=== PATIENT | female | born 1990 | race Caucasian/White ===

== ENCOUNTER 2020-08-30 09:14 | Outpatient (REF) | payer OTHER, SELFPAY ==
--- NOTE | 2020-08-30 09:29 | MR_ITS ---
EXAMINATION: MR ABDOMEN WITHOUT AND WITH CONTRAST MR PELVIS WITHOUT AND WITH CONTRAST CLINICAL INFORMATION: Iron deficiency anemia. Prior cholecystectomy 2010. COMPARISON: CT abdomen and pelvis noncontrast 06/15/2020, CT abdomen and pelvis with contrast 03/07/2019, ultrasound pelvis 03/07/2019 TECHNIQUE: MR abdomen and MR pelvis are performed without and with use of 9 mL intravenous Gadavist gadolinium contrast. Imaging is performed in 3 planes. Patient had 1.5 L of oral Breeza prior to imaging. FINDINGS: LUNG BASES: The visualized lung bases are unremarkable. LIVER, GALLBLADDER, AND BILIARY TREE: The liver is normal in size, smooth in contour, and normal in signal. No focal hepatic lesion or biliary ductal dilatation is present. The gallbladder is surgically absent. The common duct is unremarkable. There is no biliary ductal dilatation. PANCREAS: Normal in size and contour and signal. No pancreatic ductal distention or peripancreatic inflammatory changes. SPLEEN: Normal. ADRENAL GLANDS: Normal. KIDNEYS AND URETERS: The kidneys are normal in size, shape, and enhance symmetrically. No hydronephrosis. No perinephric stranding. GASTROINTESTINAL TRACT: There is no bowel obstruction or inflammatory changes seen in the bowel or mesentery. No bowel wall thickening or visible mass or abnormal enhancement. The appendix is unremarkable. There is no ascites or fluid collection. ABDOMINAL WALL: No significant hernia is appreciated. LYMPH NODES: No lymphadenopathy. VASCULAR: Unremarkable. PELVIS: The uterus is normal in size. There are some small nabothian cysts in the cervix. There is no adnexal mass or pelvic ascites. OSSEOUS STRUCTURES: Marrow signal normal. IMPRESSION: 1. No bowel obstruction or focal inflammatory changes in bowel or mesentery. 2. Prior cholecystectomy. No ductal dilatation.
== END 2020-08-30 09:15 | disposition home or self-care (01) ==
LOC: HO.MRI 09:14
PROVIDERS: Visit Provider Internal Medicine Gastroenterology
DX: D50.9 Iron deficiency anemia, unspecified (principal)
CPT/HCPCS: 72197; 74183

== ENCOUNTER → 2020-09-17 11:28 | Outpatient (BNVA) | payer OTHER, SELFPAY | PROVIDERS: PCP Internal Medicine; Visit Provider Internal Medicine Gastroenterology | DX: D50.0 Iron deficiency anemia secondary to blood loss (chronic) (principal) | CPT/HCPCS: 99212 ==

== ENCOUNTER 2020-09-18 09:37 | Outpatient (REF) | payer OTHER, SELFPAY ==
[2020-09-18 11:15] LABS: MANUAL DIFF FLAG NO
[2020-09-18 11:28] LABS: Basophils Absolute Auto 0.1 X10*3/uL (0.0-0.2); Basophils Percent Auto 0.4 % (0-2); Eosinophils Absolute Auto 0.3 X10*3/uL (0.0-0.4); Hematocrit 38.4 % (37-47); Hemoglobin 12.3 g/dl (12.0-16.0); Imm Gran Abs Auto 0.11 X10*3/uL (0.00-0.03); Imm Gran Pct Auto 0.8 % (0.0-0.4); Lymphocytes Absolute Auto 3.2 X10*3/uL (1.2-4.9); Lymphocytes Percent Auto 22.5 % (20-40); Mean Corpuscular Volume 84.2 fL (80-98); Mean Platelet Volume 9.4 fL (9.4-12.3); Monocytes Absolute Auto 1.1 X10*3/uL (0.1-1.2); Monocytes Percent Auto 8.1 % (2-11); Neutrophils Absolute Auto 9.3 X10*3/uL (2.0-8.3); Neutrophils Percent Auto 66.2 % (45-73); Platelet Count 256 X10*3/uL (160-400); Red Blood Count 4.56 X10*6/uL (4.20-5.50); Red Cell Distribution Width 13.5 % (11.0-16.0)
[2020-09-18 11:48] LABS: Unsaturated Iron Binding 206 ug/dL
[2020-09-18 11:51] LABS: Glucose Urine UA NEG (NEG); Leukocyte Esterase Urine NEG (NEG); Nitrite Urine NEG (NEG); Specific Gravity - Urine >= 1.030 (1.005-1.025); Urine Blood TRACE (NEG); Urine Ketones 5 MG/DL (NEG); Urine Protein NEG (NEG-TRACE)
[2020-09-18 11:57] LABS: Appearance Urine HAZY; Color Urine YELLOW
[2020-09-18 11:59] LABS: Iron 49 mcg/dL (30-160); Percent Iron Saturation 19 % (15-50); Total Iron Binding Capacity 255 mcg/dL (228-428)
[2020-09-18 12:08] LABS: Ferritin 36 ng/mL (10-122)
[2020-09-18 12:18] LABS: Bacteria Urine TRACE /LPF; Mucus Urine 1+ /LPF; RBC Urine 0-2 /HPF (0); Squamous Epithelial Cell Urine 1+ /LPF; WBC Urine 0-2 /HPF (0-4)
== END 2020-09-18 09:38 | disposition home or self-care (01) ==
LOC: HO.LAB 09:37
PROVIDERS: PCP Internal Medicine; Visit Provider Internal Medicine Gastroenterology
DX: D50.0 Iron deficiency anemia secondary to blood loss (chronic) (principal)
CPT/HCPCS: 36415; 81001; 82728; 83540; 85025

== ENCOUNTER → 2020-10-17 08:21 | Outpatient (BNVA) | payer OTHER, SELFPAY | PROVIDERS: Visit Provider Internal Medicine Gastroenterology | DX: K63.3 Ulcer of intestine (principal) | CPT/HCPCS: 91110 ==

== ENCOUNTER → 2020-11-05 15:08 | Outpatient (BNVA) | payer OTHER, SELFPAY | PROVIDERS: Visit Provider Internal Medicine Gastroenterology | DX: Z76.89 Persons encountering health services in other specified circumstances (principal) ==

== ENCOUNTER → 2020-12-02 08:00 | Outpatient (REF) | payer OTHER, SELFPAY ==
--- NOTE | 2020-12-02 08:05 | NM_ITS ---
EXAMINATION: RADIONUCLIDE SOLID FOOD GASTRIC EMPTYING 4-HOUR STUDY CLINICAL INFORMATION: Early satiety, burning, abdominal pain. COMPARISON: No previous gastric emptying study is available for comparison. TECHNIQUE: A standard meal consisting of 4 oz of Egg Beaters brand equivalent tagged with 900 microcuries Tc-99m Sulfur Colloid, 8 oz water and 2 slices of toast with jelly was administered orally to the patient. Images were obtained using a dual head gamma camera in the anterior and posterior projections over of the stomach immediately post ingestion and at hourly intervals up to 4 hours post ingestion. The anterior and posterior counts at each time interval were averaged using the geometric mean and expressed as percentage of the immediate post ingestion counts. FINDINGS: There is good visualization of activity in the stomach immediately post ingestion. As the study progresses, there is good clearance of activity from the stomach and visualization of progressively increasing small bowel activity. By the end of the study, there is almost no retention noted in the stomach. Retention in the stomach at each time interval was: 1 hour 53% (normal 37%-90%) 2 hours 21% (normal 30%-60%) 3 hours 21% 4 hours 8% (normal 0%-10%) NM/NM gastric emptying study IMPRESSION: Normal 4-hour solid food gastric emptying study.
== END ==
LOC: HO.NUCMED 08:00
PROVIDERS: Visit Provider Internal Medicine Gastroenterology
DX: R68.81 Early satiety (principal); R10.9 Unspecified abdominal pain
CPT/HCPCS: 78264; A9541

== ENCOUNTER 2021-01-17 16:17 | Outpatient (REF) | payer OTHER, SELFPAY ==
[2021-01-17 17:41] LABS: MANUAL DIFF FLAG NO
[2021-01-17 17:57] LABS: Glucose Urine UA NEG (NEG); Leukocyte Esterase Urine NEG (NEG); Nitrite Urine POS (NEG); PH 5.5 (5.0-8.0); Specific Gravity - Urine >= 1.030 (1.005-1.025); UACC Culture Trigger YES; Urine Blood NEG (NEG); Urine Ketones 5 MG/DL (NEG); Urine Protein 1+ MG/DL (NEG-TRACE)
[2021-01-17 17:58] LABS: Appearance Urine CLOUDY; Color Urine YELLOW
[2021-01-17 18:06] LABS: Bacteria Urine 1+ /LPF; RBC Urine 0 /HPF (0); Squamous Epithelial Cell Urine TRACE /LPF; WBC Urine 0 /HPF (0-4)
[2021-01-17 18:12] LABS: Basophils Absolute Auto 0.1 X10*3/uL (0.0-0.2); Basophils Percent Auto 0.4 % (0-2); Eosinophils Absolute Auto 0.1 X10*3/uL (0.0-0.4); Eosinophils Percent Auto 0.9 % (0-4); Hematocrit 40.8 % (37-47); Hemoglobin 13.3 g/dl (12.0-16.0); Imm Gran Abs Auto 0.12 X10*3/uL (0.00-0.03); Imm Gran Pct Auto 0.8 % (0.0-0.4); Lymphocytes Absolute Auto 3.7 X10*3/uL (1.2-4.9); Lymphocytes Percent Auto 25.1 % (20-40); Mean Corpuscular HGB Conc 32.6 g/dl (31.0-35.0); Mean Corpuscular Hemoglobin 26.8 pg (27.0-33.0); Mean Corpuscular Volume 82.1 fL (80-98); Mean Platelet Volume 9.6 fL (9.4-12.3); Monocytes Absolute Auto 1.1 X10*3/uL (0.1-1.2); Monocytes Percent Auto 7.3 % (2-11); Neutrophils Absolute Auto 9.6 X10*3/uL (2.0-8.3); Neutrophils Percent Auto 65.5 % (45-73); Platelet Count 259 X10*3/uL (160-400); Red Blood Count 4.97 X10*6/uL (4.20-5.50); Red Cell Distribution Width 13.9 % (11.0-16.0); White Blood Count 14.6 X10*3/uL (4.8-10.8)
[2021-01-17 18:24] LABS: Alanine Aminotransferase 12 U/L (0-31); Albumin Level 4.1 g/dL (3.5-5.0); Alkaline Phosphatase 98 U/L (39-117); Anion Gap 13 (12-20); Aspartate Amino Transferase 13 U/L (5-31); Bilirubin Total 0.2 mg/dL (0.0-1.0); Blood Urea Nitrogen 10 mg/dL (9-16); C Reactive Protein 0.31 mg/dL (< or = 0.50); Calcium 8.9 mg/dL (8.4-10.2); Carbon Dioxide 23 mmol/L (22-29); Chloride 106 mmol/L (96-108); Estimated Glomerular Filt Rate > 60; Glucose Random 79 mg/dL (60-115); Sodium 138 mmol/L (135-145); Total Protein 6.7 g/dL (6.5-8.0)
[2021-01-17 18:43] LABS: Potassium 3.8 mmol/L (3.3-5.1)
[2021-01-17 19:10] LABS: Erythrocyte Sedimentation Rate 6 MM/HR (0-20)
[2021-01-17 19:17] LABS: Ferritin 42 ng/mL (10-122)
== END 2021-01-17 16:18 | disposition home or self-care (01) ==
LOC: HO.LAB 16:17
PROVIDERS: PCP Internal Medicine; Visit Provider Internal Medicine Gastroenterology
DX: D50.0 Iron deficiency anemia secondary to blood loss (chronic) (principal); R30.0 Dysuria
CPT/HCPCS: 36415; 80053; 81001; 81003; 82728; 85025; 85652; 86140; 87086

== ENCOUNTER 2021-01-20 08:36 | Outpatient (REF) | payer OTHER, SELFPAY ==
[2021-01-27 20:52] LABS: Calprotectin, Fecal 8 mcg/g
== END 2021-01-20 08:37 | disposition home or self-care (01) ==
LOC: HO.LNP 08:36
PROVIDERS: Visit Provider Internal Medicine Gastroenterology
DX: D50.0 Iron deficiency anemia secondary to blood loss (chronic) (principal); K25.9 Gastric ulcer, unspecified as acute or chronic, without hemorrhage or perforation; F17.290 Nicotine dependence, other tobacco product, uncomplicated
CPT/HCPCS: 83993

== ENCOUNTER 2021-03-05 08:25 | Day surgery (SDC) | payer OTHER, SELFPAY ==
[2021-03-05 09:26] VITALS: BP 107/70; PULSE 81; RESP 18; TEMP 36.6; O2SAT 97; BMI 38.6
[2021-03-05 09:37] LABS: UPreg QC Valid YES; Urine Pregnancy NEGATIVE (NEGATIVE)
[2021-03-05] MEDS: Lactated Ringers 1,000 ML 50 ML IV (09:46)
--- NOTE | 2021-03-05 10:05 | MHC.SHP ---
Pre-Procedural Eval Section B Chief Complaint: Rectal Bleeding Relevant Family History (Specify if Yes): No Relevant Social History: Other (specify) (THC) Present Medications: see Short Stay Collaborative assessment Medical History: Significant History (anemia, PTSD,depression) History of Previous Operations: Relevant previous surgery/procedure and date(s) (History of colonoscopy Hx of cholecystectomy Hx of endoscopy) Allergies: Allergies Allergy/AdvReac Type Severity Reaction Status Date / Time latex [LATEX] Allergy Intermediate hives Verified 02/26/21 16:21 haloperidol [From HALDOL] Allergy Unknown ANXIETY Verified 02/26/21 16:21 quetiapine [From SEROQUEL] Allergy Unknown HIVES Verified 02/26/21 16:21 Review of Systems Sugical H&P ROS: Negative: Constitution, Cardiovascular, Respiratory, Neurological, Psychiatric, Hem-Onc, Allergic/Immunologic, Gastrointestinal, Genitourinary, Musculoskeletal, Integumentary, Endocrine and Eyes/Ears/Nose/Throat Exam Surgical H&P Exam: Normal: HEENT, Normal: Heart, Normal: Lungs, Normal: Extremities, Normal: Abdomen, Normal: Skin and Normal: Neurological Plan Diagnosis/Plan: Unchanged I have reviewed the history and physical and performed a pertinent physical examination on my patient. No changes have occurred unless specified.
--- NOTE | 2021-03-05 10:21 | PM.OP ---
Brief Operative Note Date of Service: 03/05/21 Pre-op diagnosis: rectal bleeding, anemia Post-op diagnosis: same Procedure: see op note Surgeon: Mata De La O MD Anesthesia: MAC Estimated blood loss (mL): 0 Condition: stable Disposition: PACU
--- NOTE | 2021-03-05 10:22 | P.OP_ITS ---
Operative Note Operative Note Date of Service: 03/05/21 Narrative: Operative Information Procedure Description: Colonoscopy COLONOSCOPY Instrument: Olympus variable stiffness pediatric scope 190L Colonoscopy Monitoring: Vital signs and clinical assessment, continuous EKG monitoring, Pulse oximetry, Carbon Dioxide monitoring and blood pressure monitoring were done throughout the procedure. Colon withdrawal time was 11 minutes. Procedure: The patient was placed in the left lateral decubitis position and pre-procedure medications were administered. After a digital rectal examination of the ano-rectum, the video colonoscope was inserted into the rectum and advanced through the colon to the cecum/TI. The colonoscope was slowly withdrawn in a retrograde panoramic fashion and the colon mucosa was carefully examined including a retroflexed view of the rectum. Findings and interventions are described below. Procedure Difficulty:easy Findings: Terminal Ileum- single small erosion seen with some erythema, biopsies taken biopsies taken from right colon and transverse/left and rectum in different jars Cecum:normal Ascending Colon: normal Transverse Colon -normal Descending Colon:normal Sigmoid Colon: normal Rectum: Retroflexion with small inflammed internal hemorrhoids, grade I Anorectum - normal Colon preparation: Brielle Bowel Preparation Scale Right colon; 2 Transverse colon: 3 Left colon; 2 (0 = Unprepared colon segment with mucosa not seen due to solid stool that cannot be cleared. 1 = Portion of mucosa of the colon segment seen, but other areas of the colon segment not well seen due to staining, residual stool and/or opaque liquid. 2 = Minor amount of residual staining, small fragments of stool and/or opaque liquid, but mucosa of colon segment seen well. 3 = Entire mucosa of colon segment seen well with no residual staining, small fragments of stool or opaque liquid) Impression and Post Procedure Diagnosis: mild ileitis internal hemorrhoids Plan: High fiber diet leaflet Avoid straining at stool, epsom salts and sitz bath, anusol supps or cream Repeat Colonoscopy aged 45 for regular screening or earlier if clinically indicated Above findings were reviewed with the patient and relevant handouts were provided if indicated.
--- NOTE | 2021-03-05 10:40 | P.CONAN_ITS ---
[facility] Active Problems Active Problems: All Active Problems (Updated 02/26/21 @ 16:19 by Dianne valencia) Anemia (Acute) Ileitis (Acute) Early satiety (Acute) Past Medical History Medical History Anxiety and depression Asthma History of kidney stones History of pneumonia Iron deficiency anemia PTSD (post-traumatic stress disorder) Family History Family History Father Hx of heat stroke Mother No problems noted. Maternal Grandfather Cancer Paternal Grandfather Cancer Paternal Uncle Cancer Maternal Uncle Cancer Surgical History Surgical History History of colonoscopy History of cystoscopy History of tonsillectomy Hx of cholecystectomy Hx of endoscopy Social History Social History Household Members: Children Alcohol intake: current Alcohol intake frequency: does not drink Smoking Status: Current every day smoker Tobacco Type: Cigar Cigarettes Per Day: 2 Substance Use Type: Marijuana Have you been hit, kicked, punched, or otherwise hurt by someone within the past year? If so, by whom?: No Advance Directives: No Advance Directives Information Provided: Yes Recently lost weight without trying: No Meds Allergies Allergy/AdvReac Type Severity Reaction Status Date / Time latex [LATEX] Allergy Intermediate hives Verified 02/26/21 16:21 haloperidol [From HALDOL] Allergy Unknown ANXIETY Verified 02/26/21 16:21 quetiapine [From SEROQUEL] Allergy Unknown HIVES Verified 02/26/21 16:21 Active Medications: Current Medications Generic Name Dose Route Start Last Admin Trade Name Freq PRN Reason Stop Dose Admin Lactated Ringer's 1,000 mls @ 50 mls/hr 03/05/21 07:15 03/05/21 09:46 Lr IV 50 mls/hr .Q20H ROSELINE Administration Home Medications Medication Instructions Recorded Confirmed Last Taken Type clonazepam 1 mg tablet 1 mg PO BID PRN 11/05/20 02/26/21 03/05/21 History clonidine HCl 0.1 mg tablet 0.1 mg PO BID 11/05/20 02/26/21 03/05/21 History divalproex 500 mg tablet,delayed 500 mg PO BID 11/05/20 02/26/21 Unknown History release olanzapine 5 mg tablet 5 mg PO BID 11/05/20 02/26/21 Unknown History Exam Exam Date and Time: March 05, 2021 1040 Height,Weight and Vital Signs: Height 5 ft 4 in Weight 102.058 kg Last Vital Signs Temp 98 F 03/05/21 09:26 Pulse 81 03/05/21 09:26 Resp 18 03/05/21 09:26 BP 107/70 03/05/21 09:26 Pulse Ox 97 03/05/21 09:26 Pertinent Lab Results Pertinent Lab Results: Laboratory Tests 03/05/21 09:20 Urine Test NEGATIVE Airway Mallampati Class: I TM Dist: >3cm Neck ROM: Full Loose/Missing/Broken Teeth: No Assessment and Plan Assessment Anesthesia Assessment: Anesthesia Plan Discussed and Chart Reviewed Final Anesthetic Review ASA Class: II Final Preanesthetic Review: No Changes in Pt Med Stat, Meds/Allgs Chart Reviewed, Consent Obtained/Reviewed and Anes Risks/Benef Reviewed Patient Risk: Low Procedure Risk: Low Anesthetic Plan Anesthetic Plan: MAC: Disposition: Standard PACU
[2021-03-05 10:47] VITALS: BP 108/78; PULSE 83; RESP 14; TEMP 36.3; O2SAT 99
[2021-03-05 11:02] VITALS: BP 110/70; PULSE 74; RESP 18; TEMP 36.4; O2SAT 99
== END 2021-03-05 11:27 | disposition home or self-care (01) ==
PROVIDERS: Anesthesiology; PCP Internal Medicine; Visit Provider Internal Medicine Gastroenterology
PROC: 0DJD8ZZ Inspection of Lower Intestinal Tract, Via Natural or Artificial Opening Endoscopic (ICD-10-PCS; CPT 45378; principal; 2021-03-05 10:10)
DX: K62.5 Hemorrhage of anus and rectum (principal); K52.9 Noninfective gastroenteritis and colitis, unspecified; K64.0 First degree hemorrhoids; D50.0 Iron deficiency anemia secondary to blood loss (chronic); Z90.49 Acquired absence of other specified parts of digestive tract; F32.9 Major depressive disorder, single episode, unspecified; F17.290 Nicotine dependence, other tobacco product, uncomplicated; F43.10 Post-traumatic stress disorder, unspecified; Z79.899 Other long term (current) drug therapy; Z91.040 Latex allergy status; Z88.8 Allergy status to other drugs, medicaments and biological substances; F12.90 Cannabis use, unspecified, uncomplicated
CPT/HCPCS: 45380; 81025; 88305

== ENCOUNTER → 2021-03-28 09:29 | Outpatient (BNVA) | payer OTHER, SELFPAY | PROVIDERS: PCP Internal Medicine; Visit Provider Internal Medicine Gastroenterology ==

== ENCOUNTER → 2021-07-29 10:38 | Outpatient (BNVA) | payer OTHER, SELFPAY | PROVIDERS: PCP Internal Medicine; Visit Provider Internal Medicine Gastroenterology ==

== ENCOUNTER 2022-09-22 10:00 | Emergency (ER) | payer OTHER, SELFPAY ==
--- NOTE | ~2022-09-22 | CT_ITS ---
EXAMINATION: CT HEAD WITHOUT CONTRAST CLINICAL INFORMATION: Headache x1 week COMPARISON: None TECHNIQUE: Contiguous axial imaging was performed of the head without the administration of IV contrast. This CT examination was performed using dose optimization techniques as appropriate, variously including the following: *Automated exposure control *Adjustment of mA and/or kV according to patient size (this includes techniques or standardized protocols for targeted exams where dose is matched to indication/reason for exam; i.e. extremities or head) *Use of iterative reconstruction technique Dose: 616 mGy-cm FINDINGS: There is no evidence of acute intracranial hemorrhage or territorial infarction. No abnormal mass-effect or midline shift is seen. Brar to white matter differentiation is well preserved. No extra axial fluid collections. The ventricles are normal in size and configuration. There is no abnormal attenuation within the brain parenchyma. No acute osseous findings. Mild hyperostosis frontalis interna. At the squamosal portion of the left temporal bone, there is a small 5 mm rounded calcis excrescence off the inner table of the calvarium which likely corresponds to a small meningioma. This produces minimal underlying mass effect at the adjacent temporal lobe. The sinuses and mastoid air cells are clear. CT/CT head/brain wo IV con IMPRESSION: No acute intracranial pathology.
[2022-09-22 10:08] VITALS: BP 120/80; PULSE 86; RESP 20; TEMP 36; O2SAT 100; BMI 33.1
[2022-09-22 10:23] LABS: MANUAL DIFF FLAG NO
[2022-09-22 10:25] LABS: Basophils Percent Auto 0.4 % (0-2); Eosinophils Absolute Auto 0.1 X10*3/uL (0.0-0.4); Eosinophils Percent Auto 0.9 % (0-4); Hematocrit 36.4 % (37.0-47.0); Hemoglobin 11.8 g/dl (12.0-16.0); Imm Gran Abs Auto 0.06 X10*3/uL (0.00-0.03); Imm Gran Pct Auto 0.5 % (0.0-0.4); Lymphocytes Absolute Auto 3.1 X10*3/uL (1.2-4.9); Lymphocytes Percent Auto 28.5 % (20-40); Mean Corpuscular HGB Conc 32.4 g/dl (31.0-35.0); Mean Corpuscular Volume 83.3 fL (80.0-98.0); Mean Platelet Volume 9.1 fL (9.4-12.3); Monocytes Absolute Auto 0.8 X10*3/uL (0.1-1.2); Monocytes Percent Auto 6.9 % (2-11); Neutrophils Absolute Auto 6.9 x10*3/uL (2.0-8.3); Neutrophils Percent Auto 62.8 % (45-73); Platelet Count 231 X10*3/uL (160-400); Red Blood Count 4.37 X10*6/uL (4.20-5.50); Red Cell Distribution Width 12.9 % (11.0-16.0)
[2022-09-22 10:46] LABS: Anion Gap 11 (12-20); Blood Urea Nitrogen 18 mg/dL (9-16); Calcium 9.2 mg/dL (8.4-10.2); Carbon Dioxide 21 mmol/L (22-29); Chloride 109 mmol/L (96-108); Creatinine Clr Calc Pharmacy 124.4; Estimated Glomerular Filt Rate > 60; Glucose Random 113 mg/dL (60-115); Potassium 3.7 mmol/L (3.3-5.1); Sodium 137 mmol/L (135-145)
--- NOTE | 2022-09-22 18:00 | ED.GENADULT ---
HPI - General Adult General Chief complaint: Eye Problems <HUY Osullivan - Last Filed: 09/22/22 19:27> Stated complaint: Headache <HUY Osullivan - Last Filed: 09/22/22 19:27> Time Seen by Provider: 09/22/22 17:32 <HUY Osullivan - Last Filed: 09/22/22 19:27> Source: patient <HUY Osullivan - Last Filed: 09/22/22 19:27> Mode of arrival: ambulatory <HUY Osullivan - Last Filed: 09/22/22 19:27> Limitations: no limitations <HUY Osullivan Last Filed: 09/22/22 19:27> History of Present Illness HPI narrative: 31-year-old female referred to the ED by nib assembler for headache for 1 week and as per her letter she states patient has papilledema in both eyes. Patient denies any slurred speech, facial droop, paralysis lower extremities, or loss of vision. She denies any family history of his tinea gravis on multiple sclerosis. Patient denies being any blood denies any recent head trauma <HUY Osullivan Last Filed: 09/22/22 19:27> Related Data Home medications: Home Medications Medication Instructions Recorded Confirmed clonazepam 1 mg tablet 1 mg PO BID PRN anxiety 11/05/20 02/26/21 clonidine HCl 0.1 mg tablet 0.1 mg PO BID anxiety 11/05/20 02/26/21 divalproex 500 mg tablet,delayed 500 mg PO BID 11/05/20 02/26/21 release Previous Rx's Medication Instructions Recorded bisacodyl 5 mg tablet,delayed 10 mg PO ONCE Bowel Preparation 1 10/08/20 release (Dulcolax (bisacodyl)) day #2 tabs ciprofloxacin HCl 500 mg tablet 500 mg PO BID #14 tabs 01/20/21 mesalamine 0.375 gram 1.5 g PO DAILY #120 caps 07/16/22 capsule,extended release 24 hr linaclotide 145 mcg capsule 145 mcg PO DAILY #30 caps 09/17/22 (Linzess) ghykmxvjwu-dkddnwvqvooyo-ajsqupkc 1 cap PO Q8H PRN pain #10 caps 09/22/22 50 mg-300 mg-40 mg capsule (Fioricet) <HUY Osullivan - Last Filed: 09/22/22 19:27> Allergies/adverse reactions: Allergies Allergy/AdvReac Type Severity Reaction Status Date / Time latex [LATEX] Allergy Intermediate hives Verified 07/29/21 10:39 haloperidol [From HALDOL] Allergy Unknown ANXIETY Verified 07/29/21 10:39 quetiapine [From SEROQUEL] Allergy Unknown HIVES Verified 07/29/21 10:39 <HUY Osullivan - Last Filed: 09/22/22 19:27> Review of Systems Review of Systems: Headache and blurry vision <HUY Osullivan - Last Filed: 09/22/22 19:27> Yes all other systems are reviewed and are negative <HUY Osullivan - Last Filed: 09/22/22 19:27> [facility] Past Medical History Medical History: Medical History Anxiety and depression Asthma History of kidney stones History of pneumonia Iron deficiency anemia PTSD (post-traumatic stress disorder) <HUY Osullivan - Last Filed: 09/22/22 19:27> Surgical History: Surgical History History of colonoscopy History of cystoscopy History of tonsillectomy Hx of cholecystectomy Hx of endoscopy <HUY Osullivan - Last Filed: 09/22/22 19:27> Family History Family History: Family History Father Hx of heat stroke Mother No problems noted. Maternal Grandfather Cancer Paternal Grandfather Cancer Paternal Uncle Cancer Maternal Uncle Cancer <HUY Osullivan - Last Filed: 09/22/22 19:27> Social History Social History: Social History Household Members: Children Alcohol intake: current Alcohol intake frequency: does not drink Cigarettes Per Day: 2 Substance Use Type: Marijuana Advance Directives: No Advance Directives Information Provided: Yes <HUY Osullivan Last Filed: 09/22/22 19:27> Physical Exam ED Vital Signs: Vital Signs - 24 hr 09/22/22 10:08 Temperature 96.8 F Pulse Rate 86 Respiratory Rate 20 Blood Pressure 120/80 Pulse Oximetry 100 Oxygen Delivery Method Room Air BMI result Body Mass Index 33.1 <HUY Osullivan Last Filed: 09/22/22 19:27> Vital Signs - 24 hr 09/22/22 10:08 Temperature 96.8 F Pulse Rate 86 Respiratory Rate 20 Blood Pressure 120/80 Pulse Oximetry 100 Oxygen Delivery Method Room Air BMI result Body Mass Index 33.1 <HUY Rodarte Last Filed: 09/22/22 23:01> Const General: cooperative, healthy appearing, comfortable, no acute distress, well developed and alert <HUY Osullivan Last Filed: 09/22/22 19:27> Orientation/consciousness: oriented to person, oriented to place, oriented to time and patient oriented x3 <HUY Osullivan Last Filed: 09/22/22 19:27> HENMT Head: Yes normal to inspection, Yes No palpable skull fracture present, Yes normocephalic, Yes atraumatic and No abrasion <HUY Osullivan Last Filed: 09/22/22 19:27> Ears: hearing grossly normal bilaterally and external ears normal <HUY Osullivan Last Filed: 09/22/22 19:27> Eyes Other: All visual feilds are intact. No erythema of conjuctiva. VIsual acuity <HUY Osullivan Last Filed: 09/22/22 19:27> General: appearance normal, both eyes and all related structures <HUY Osullivan Last Filed: 09/22/22 19:27> Neck Neck: Yes normal visual inspection, Yes full ROM, Yes no lymphadenopathy, Yes no meningeal signs, Yes trachea midline, Yes supple, No anterior neck swelling and No tender <HUY Osullivan Last Filed: 09/22/22 19:27> Chest Chest palpation & inspection: normal inspection of the chest and normal palpation of entire chest wall <HUY Osullivan Last Filed: 09/22/22 19:27> Resp Effort & Inspection: normal respiratory effort and able to speak in complete sentences <HUY Osullivan Last Filed: 09/22/22 19:27> Cardio Jugular venous distension: no JVD <HUY Osullivan Last Filed: 09/22/22 19:27> Heart sounds: S1 normal heart sound present and S2 normal heart sound present <HUY Osullivan Last Filed: 09/22/22 19:27> GI Inspection: Yes normal to inspection and No abdominal wall ecchymosis <HUY Osullivan Last Filed: 09/22/22 19:27> Palpation (GI): Soft to palpation, not firm, nontender, no guarding and not rigid <HUY Osullivan Last Filed: 09/22/22:27> General: No CVA tenderness and Yes no CVA tenderness <HUY Osullivan Last Filed: 09/22/22 19:27> Back/Spine/Pelvis Back: no CVA tenderness, No CVA tenderness and No back tenderness <HUY Osullivan Last Filed: 09/22/22 19:27> Skin General skin exam: no rashes or lesions noted and elasticity normal <HUY Osullivan Last Filed: 09/22/22 19:27> Neuro General: oriented to person, oriented to place, oriented to time, patient oriented x3, gait normal, moves all extremities, Normal light touch and pain sensation and no meningeal signs <HUY Osullivan Last Filed: 09/22/22 19:27> Extrem General: Yes normal to inspection and Yes full ROM <HUY Osullivan Last Filed: 09/22/22 19:27> Psych Appearance: grossly normal, well kempt and not disheveled <HUY Osullivan Last Filed: 09/22/22 19:27> Course Course Course Narrative: Dr. Valverde Recommends labs and HEad CT scan. IF head CT scan is normal than LP will be done. <HUY Osullivan Last Filed: 09/22/22 19:27> Reevaluation(s) Reevaluation #1: ESR CRP negative. REst of labs normal. HEad CT scan is normal. Case signed out HUY Mcgrath. patiient agreealbe to Lumbar puncture and explained the necessity for procedure and risks. patient gave verbal consent will sign paper consent. <HUY Osullivan - Last Filed: 09/22/22 19:27> Time: 19:23 <HUY Osullivan - Last Filed: 09/22/22 19:27> Reevaluation #2: I took over care of this patient, I did a lumbar puncture, obtain cerebral spinal fluid and sent it down to the lab for analysis. Prior to the procedure I obtained verbal and written consent which is in the chart. Patient tolerated procedure well, no complications. Opening pressure noted to be around 10. Patient denied any complaints during the procedure. Patient laying in a supine position, not complaining of postprocedural headache, numbness or tingling tells me she is feeling slightly better thus raising some suspicion for possible pseudotumor cerebri. Patient tells me that her headache is much improved benjamin when she came in. I ordered Fioricet for headache. My attending is following this case with me and agrees with treatment plan at this time. <HUY Rodarte - Last Filed: 09/22/22 23:01> Time: 20:42 <HUY Rodarte - Last Filed: 09/22/22 23:01> Reevaluation #3: Patient reports improvement in headache. Able to ambulate with steady gait without difficulties. Patient with normal cerebellar function and normal neurological exam. Patient tells me that the only symptom she is still having a slight pressure behind bilateral eyes and she is having a slight headache however much improved from initially. Patient tells me at no time was her vision painful or was she having painful extraocular movements therefore low suspicion for acute angle closure glaucoma and or wet macular degeneration. I discussed this case with my attending who recommends discharging patient home with Neurology follow-up, ophthalmology follow-up as well as Fioricet. I educated patient on worrisome signs and symptoms and when to return. At this time I feel comfortable discharge home with prompt PCP, neurology and ophthalmology follow-up. <HUY Rodarte - Last Filed: 09/22/22 23:01> Time: 22:51 <HUY Rodarte - Last Filed: 09/22/22 23:01> Medications Administered Discontinued Medications Generic Name Dose Route Start Last Admin Trade Name Freq PRN Reason Stop Dose Admin Acetaminophen/Butalbital/Caffeine 1 tab 09/22/22 20:03 09/22/22 21:56 Butalb/Acetamin/Caff 50/325/40 Tablet PO 09/22/22 20:04 1 tab ONCE ONE Administration Hydromorphone HCl 1 mg 09/22/22 21:27 09/22/22 21:55 Hydromorphone Hcl 2 Mg Tablet PO 09/22/22 21:28 1 mg ONCE ONE Administration Morphine Sulfate 4 mg 09/22/22 19:13 09/22/22 22:41 Morphine Sulfate 4 Mg/Ml Cartridge IVPUSH 09/22/22 19:14 Not Given ONCE ONE Protocol Morphine Sulfate 2 mg 09/22/22 19:13 09/22/22 22:41 Morphine Sulfate 2 Mg/Ml Cartridge IVPUSH 09/22/22 19:14 Not Given ONCE ONE Protocol Ondansetron HCl 4 mg 09/22/22 21:44 09/22/22 21:57 Ondansetron Hcl 4 Mg/2 Ml Vial IVPUSH 09/22/22 21:45 4 mg ONCE ONE Administration <HUY Osullivan - Last Filed: 09/22/22 19:27> Medications Administered Discontinued Medications Generic Name Dose Route Start Last Admin Trade Name Freq PRN Reason Stop Dose Admin Acetaminophen/Butalbital/Caffeine 1 tab 09/22/22 20:03 09/22/22 21:56 Butalb/Acetamin/Caff 50/325/40 Tablet PO 09/22/22 20:04 1 tab ONCE ONE Administration Hydromorphone HCl 1 mg 09/22/22 21:27 09/22/22 21:55 Hydromorphone Hcl 2 Mg Tablet PO 09/22/22 21:28 1 mg ONCE ONE Administration Morphine Sulfate 4 mg 09/22/22 19:13 09/22/22 22:41 Morphine Sulfate 4 Mg/Ml Cartridge IVPUSH 09/22/22 19:14 Not Given ONCE ONE Protocol Morphine Sulfate 2 mg 09/22/22 19:13 09/22/22 22:41 Morphine Sulfate 2 Mg/Ml Cartridge IVPUSH 09/22/22 19:14 Not Given ONCE ONE Protocol Ondansetron HCl 4 mg 09/22/22 21:44 09/22/22 21:57 Ondansetron Hcl 4 Mg/2 Ml Vial IVPUSH 09/22/22 21:45 4 mg ONCE ONE Administration <HUY Rodarte - Last Filed: 09/22/22 23:01> Procedures Lumbar Puncture Time Out Performed: Yes <HUY Rodarte - Last Filed: 09/22/22 23:01> Patient Position: left lateral decubitus <HUY Rodarte - Last Filed: 09/22/22 23:01> Local Anesthetic: lidocaine 2% <HUY Rodarte - Last Filed: 09/22/22 23:01> Amount of anesthesia used (mL): 5 <HUY Rodarte - Last Filed: 09/22/22 23:01> Spinal Needle Gauge: 24G <HUY Rodarte - Last Filed: 09/22/22 23:01> Interspace Used: L3-L4 <HUY Rodarte - Last Filed: 09/22/22 23:01> Opening Pressure (cmH20): 10 <HUY Rodarte - Last Filed: 09/22/22 23:01> Fluid Initially Obtained: clear <HUY Rodarte - Last Filed: 09/22/22 23:01> Complications: none <HUY Rodarte - Last Filed: 09/22/22 23:01> Medical Decision Making MDM Narrative Medical decision making narrative: Headache <HUY Osullivan - Last Filed: 09/22/22 19:27> Medical Records Medical records reviewed: Yes I reviewed the patient's medical records. <HUY Rodarte - Last Filed: 09/22/22 23:01> Lab Data Lab results reviewed: Yes I reviewed the patient's lab results. <HUY Rodarte - Last Filed: 09/22/22 23:01> Result diagrams: : 09/22/22 10:19 09/22/22 10:19 <HUY Osullivan - Last Filed: 09/22/22 19:27> Labs: Lab Results 09/22/22 09/22/22 09/22/22 Range/Units 10:19 10:19 10:19 WBC 11.0 H (4.8-10.8) X10*3/uL RBC 4.37 (4.20-5.50) X10*6/uL Hgb 11.8 L (12.0-16.0) g/dl Hct 36.4 L (37.0-47.0) % MCV 83.3 (80.0-98.0) fL MCH 27.0 (27.0-33.0) pg MCHC 32.4 (31.0-35.0) g/dl RDW 12.9 (11.0-16.0) % Plt Count 231 (160-400) X10*3/uL MPV 9.1 L (9.4-12.3) fL Immature Gran % (Auto) 0.5 H (0.0-0.4) % Neut % (Auto) 62.8 (45-73) % Lymph % (Auto) 28.5 (20-40) % [place] % (Auto) 6.9 (2-11) % Eos % (Auto) 0.9 (0-4) % Baso % (Auto) 0.4 (0-2) % Lymph # (Auto) 3.1 (1.2-4.9) X10*3/uL [place] # (Auto) 0.8 (0.1-1.2) X10*3/uL Eos # (Auto) 0.1 (0.0-0.4) X10*3/uL Baso # (Auto) 0.0 (0.0-0.2) X10*3/uL Abs Immat Gran (auto) 0.06 H (0.00-0.03) X10*3/uL Absolute Neuts (auto) 6.9 (2.0-8.3) x10*3/uL Absolute Nucleated RBC 0.000 (0.0-0.012) X10*3/uL Nucleated RBC % (auto) 0.0 (0.0-0.2) /100WBC ESR 5 (0-20) MM/HR Sodium 137 (135-145) mmol/L Potassium 3.7 (3.3-5.1) mmol/L Chloride 109 H (96-108) mmol/L Carbon Dioxide 21 L (22-29) mmol/L Anion Gap 11 L (12-20) BUN 18 H (9-16) mg/dL Creatinine 0.74 (0.5-1.4) mg/dL Estim Creat Clear Calc 124.4 Estimated GFR > 60 Random Glucose 113 (60-115) mg/dL Calcium 9.2 (8.4-10.2) mg/dL C-Reactive Protein 0.34 (< or = 0.50) mg/dL CSF Tube Number CSF Volume ML CSF Appearance CSF Color CSF WBC MM*3 CSF RBC MM*3 CSF Neutrophils % CSF Lymphocytes % CSF Appearance (b) CSF Glucose mg/dL CSF Total Protein (15-45) mg/dL CSF C.neoform/gat PCR (Not Detect.) CSF CMV DNA (PCR) (Not Detect.) CSF Enterovirus (PCR) (Not Detect.) CSF E. coli K1 (PCR) (Not Detect.) CSF H. influenzae (PCR) (Not Detect.) CSF HSV I (PCR) (Not Detect.) CSF HSV II (PCR) (Not Detect.) CSF HHV 6 (PCR) (Not Detect.) CSF L.monocytogenes PCR (Not Detect.) CSF N. meningitidis PCR (Not Detect.) CSF Parechovirus (PCR) (Not Detect.) CSF S. agalactiae (PCR) (Not Detect.) CSF S. pneumoniae (PCR) (Not Detect.) CSF VZV (PCR) (Not Detect.) 09/22/22 09/22/22 09/22/22 Range/Units 20:07 20:07 20:07 WBC (4.8-10.8) X10*3/uL RBC (4.20-5.50) X10*6/uL Hgb (12.0-16.0) g/dl Hct (37.0-47.0) % MCV (80.0-98.0) fL MCH (27.0-33.0) pg MCHC (31.0-35.0) g/dl RDW (11.0-16.0) % Plt Count (160-400) X10*3/uL MPV (9.4-12.3) fL Immature Gran % (Auto) (0.0-0.4) % Neut % (Auto) (45-73) % Lymph % (Auto) (20-40) % [place] % (Auto) (2-11) % Eos % (Auto) (0-4) % Baso % (Auto) (0-2) % Lymph # (Auto) (1.2-4.9) X10*3/uL [place] # (Auto) (0.1-1.2) X10*3/uL Eos # (Auto) (0.0-0.4) X10*3/uL Baso # (Auto) (0.0-0.2) X10*3/uL Abs Immat Gran (auto) (0.00-0.03) X10*3/uL Absolute Neuts (auto) (2.0-8.3) x10*3/uL Absolute Nucleated RBC (0.0-0.012) X10*3/uL Nucleated RBC % (auto) (0.0-0.2) /100WBC ESR (0-20) MM/HR Sodium (135-145) mmol/L Potassium (3.3-5.1) mmol/L Chloride (96-108) mmol/L Carbon Dioxide (22-29) mmol/L Anion Gap (12-20) BUN (9-16) mg/dL Creatinine (0.5-1.4) mg/dL Estim Creat Clear Calc Estimated GFR Random Glucose (60-115) mg/dL Calcium (8.4-10.2) mg/dL C-Reactive Protein (< or = 0.50) mg/dL CSF Tube Number 1 4 CSF Volume 1.0 ML CSF Appearance CLEAR CSF Color COLORLESS CSF WBC 1 MM*3 CSF RBC 666 MM*3 CSF Neutrophils 59 % CSF Lymphocytes 41 % CSF Appearance (b) Clear, Colorless CSF Glucose 56 mg/dL CSF Total Protein 15.7 (15-45) mg/dL CSF C.neoform/gat PCR Not Detected (Not Detect.) CSF CMV DNA (PCR) Not Detected (Not Detect.) CSF Enterovirus (PCR) Not Detected (Not Detect.) CSF E. coli K1 (PCR) Not Detected (Not Detect.) CSF H. influenzae (PCR) Not Detected (Not Detect.) CSF HSV I (PCR) Not Detected (Not Detect.) CSF HSV II (PCR) Not Detected (Not Detect.) CSF HHV 6 (PCR) Not Detected (Not Detect.) CSF L.monocytogenes PCR Not Detected (Not Detect.) CSF N. meningitidis PCR Not Detected (Not Detect.) CSF Parechovirus (PCR) Not Detected (Not Detect.) CSF S. agalactiae (PCR) Not Detected (Not Detect.) CSF S. pneumoniae (PCR) Not Detected (Not Detect.) CSF VZV (PCR) Not Detected (Not Detect.) <HUY Osullivan - Last Filed: 09/22/22 19:27> Lab Results 09/22/22 09/22/22 09/22/22 Range/Units 10:19 10:19 10:19 WBC 11.0 H (4.8-10.8) X10*3/uL RBC 4.37 (4.20-5.50) X10*6/uL Hgb 11.8 L (12.0-16.0) g/dl Hct 36.4 L (37.0-47.0) % MCV 83.3 (80.0-98.0) fL MCH 27.0 (27.0-33.0) pg MCHC 32.4 (31.0-35.0) g/dl RDW 12.9 (11.0-16.0) % Plt Count 231 (160-400) X10*3/uL MPV 9.1 L (9.4-12.3) fL Immature Gran % (Auto) 0.5 H (0.0-0.4) % Neut % (Auto) 62.8 (45-73) % Lymph % (Auto) 28.5 (20-40) % [place] % (Auto) 6.9 (2-11) % Eos % (Auto) 0.9 (0-4) % Baso % (Auto) 0.4 (0-2) % Lymph # (Auto) 3.1 (1.2-4.9) X10*3/uL [place] # (Auto) 0.8 (0.1-1.2) X10*3/uL Eos # (Auto) 0.1 (0.0-0.4) X10*3/uL Baso # (Auto) 0.0 (0.0-0.2) X10*3/uL Abs Immat Gran (auto) 0.06 H (0.00-0.03) X10*3/uL Absolute Neuts (auto) 6.9 (2.0-8.3) x10*3/uL Absolute Nucleated RBC 0.000 (0.0-0.012) X10*3/uL Nucleated RBC % (auto) 0.0 (0.0-0.2) /100WBC ESR 5 (0-20) MM/HR Sodium 137 (135-145) mmol/L Potassium 3.7 (3.3-5.1) mmol/L Chloride 109 H (96-108) mmol/L Carbon Dioxide 21 L (22-29) mmol/L Anion Gap 11 L (12-20) BUN 18 H (9-16) mg/dL Creatinine 0.74 (0.5-1.4) mg/dL Estim Creat Clear Calc 124.4 Estimated GFR > 60 Random Glucose 113 (60-115) mg/dL Calcium 9.2 (8.4-10.2) mg/dL C-Reactive Protein 0.34 (< or = 0.50) mg/dL CSF Tube Number CSF Volume ML CSF Appearance CSF Color CSF WBC MM*3 CSF RBC MM*3 CSF Neutrophils % CSF Lymphocytes % CSF Appearance (b) CSF Glucose mg/dL CSF Total Protein (15-45) mg/dL CSF C.neoform/gat PCR (Not Detect.) CSF CMV DNA (PCR) (Not Detect.) CSF Enterovirus (PCR) (Not Detect.) CSF E. coli K1 (PCR) (Not Detect.) CSF H. influenzae (PCR) (Not Detect.) CSF HSV I (PCR) (Not Detect.) CSF HSV II (PCR) (Not Detect.) CSF HHV 6 (PCR) (Not Detect.) CSF L.monocytogenes PCR (Not Detect.) CSF N. meningitidis PCR (Not Detect.) CSF Parechovirus (PCR) (Not Detect.) CSF S. agalactiae (PCR) (Not Detect.) CSF S. pneumoniae (PCR) (Not Detect.) CSF VZV (PCR) (Not Detect.) 09/22/22 09/22/22 09/22/22 Range/Units 20:07 20:07 20:07 WBC (4.8-10.8) X10*3/uL RBC (4.20-5.50) X10*6/uL Hgb (12.0-16.0) g/dl Hct (37.0-47.0) % MCV (80.0-98.0) fL MCH (27.0-33.0) pg MCHC (31.0-35.0) g/dl RDW (11.0-16.0) % Plt Count (160-400) X10*3/uL MPV (9.4-12.3) fL Immature Gran % (Auto) (0.0-0.4) % Neut % (Auto) (45-73) % Lymph % (Auto) (20-40) % [place] % (Auto) (2-11) % Eos % (Auto) (0-4) % Baso % (Auto) (0-2) % Lymph # (Auto) (1.2-4.9) X10*3/uL [place] # (Auto) (0.1-1.2) X10*3/uL Eos # (Auto) (0.0-0.4) X10*3/uL Baso # (Auto) (0.0-0.2) X10*3/uL Abs Immat Gran (auto) (0.00-0.03) X10*3/uL Absolute Neuts (auto) (2.0-8.3) x10*3/uL Absolute Nucleated RBC (0.0-0.012) X10*3/uL Nucleated RBC % (auto) (0.0-0.2) /100WBC ESR (0-20) MM/HR Sodium (135-145) mmol/L Potassium (3.3-5.1) mmol/L Chloride (96-108) mmol/L Carbon Dioxide (22-29) mmol/L Anion Gap (12-20) BUN (9-16) mg/dL Creatinine (0.5-1.4) mg/dL Estim Creat Clear Calc Estimated GFR Random Glucose (60-115) mg/dL Calcium (8.4-10.2) mg/dL C-Reactive Protein (< or = 0.50) mg/dL CSF Tube Number 1 4 CSF Volume 1.0 ML CSF Appearance CLEAR CSF Color COLORLESS CSF WBC 1 MM*3 CSF RBC 666 MM*3 CSF Neutrophils 59 % CSF Lymphocytes 41 % CSF Appearance (b) Clear, Colorless CSF Glucose 56 mg/dL CSF Total Protein 15.7 (15-45) mg/dL CSF C.neoform/gat PCR Not Detected (Not Detect.) CSF CMV DNA (PCR) Not Detected (Not Detect.) CSF Enterovirus (PCR) Not Detected (Not Detect.) CSF E. coli K1 (PCR) Not Detected (Not Detect.) CSF H. influenzae (PCR) Not Detected (Not Detect.) CSF HSV I (PCR) Not Detected (Not Detect.) CSF HSV II (PCR) Not Detected (Not Detect.) CSF HHV 6 (PCR) Not Detected (Not Detect.) CSF L.monocytogenes PCR Not Detected (Not Detect.) CSF N. meningitidis PCR Not Detected (Not Detect.) CSF Parechovirus (PCR) Not Detected (Not Detect.) CSF S. agalactiae (PCR) Not Detected (Not Detect.) CSF S. pneumoniae (PCR) Not Detected (Not Detect.) CSF VZV (PCR) Not Detected (Not Detect.) <HUY Rodarte - Last Filed: 09/22/22 23:01> Critical Care Time Critical Care Time Critical Care Time: Yes <HUY Rodarte Last Filed: 09/22/22 23:01> Total Critical Care Time: 55 <HUY Rodarte Last Filed: 09/22/22 23:01> Attestation: I attest to this time spent taking care of the patient, obtaining history, physical, reviewing labs, imaging, speaking to my attending, speaking to specialist. <HUY Rodarte Last Filed: 09/22/22 23:01> Discharge Plan Discharge Clinical Impression: Headache, Papilledema <HUY Osullivan Last Filed: 09/22/22 19:27> Patient Disposition: Home, Self-Care <HUY Osullivan Last Filed: 09/22/22 19:27> Instructions: Acute Headache (ED), General Headache (ED) <HUY Osullivan Last Filed: 09/22/22 19:27> Additional Instructions: Take your medications as prescribed. If you were prescribed antibiotics today, it is important that you take your medication to their entirety, do not skip any doses, do not finish them early. Follow-up with your primary care provider this week. Follow-up with neurology information below call tomorrow to schedule an appointment Return to the emergency department with new or worsening symptoms. Such as fevers, chills, chest pain, shortness of breath, nausea, vomiting, dizziness, headache, vision changes, lethargy, weakness, changes in speech, facial asymmetry, difficulty ambulating, painful eye movements, changes in vision, worsening headache, In case of emergency call 911 <HUY Osullivan - Last Filed: 09/22/22 19:27> Prescriptions: New [id number] [Fioricet] 50-300-40 mg capsule 1 cap PO Q8H PRN (Reason: pain) Qty: 10 0RF No Action bisacodyl [Dulcolax (bisacodyl)] 5 mg tablet,delayed release (DR/EC) 10 mg PO ONCE 1 Days Qty: 2 0RF Rx Instructions: Take 2 tablets at 12:00pm the day before your procedure, bowel prep mesalamine 0.375 gram capsule,extended release 24hr 1.5 g PO DAILY Qty: 120 2RF Linzess 145 mcg capsule 145 mcg PO DAILY Qty: 30 1RF ciprofloxacin HCl 500 mg tablet 500 mg PO BID Qty: 14 0RF divalproex 500 mg tablet,delayed release (DR/EC) 500 mg PO BID clonazepam 1 mg tablet 1 mg PO BID PRN (Reason: anxiety) clonidine HCl 0.1 mg tablet 0.1 mg PO BID <HUY Osullivan - Last Filed: 09/22/22 19:27> Referrals: [facility] [place] Neuro/Sleep [Provider Group] - 1 day Physician,Nonstaff [Primary Care Provider] - 2 days Dalton Vazquez [Physician] - 1 day <HUY Osullivan - Last Filed: 09/22/22 19:27> Stand Alone Forms: Work/School Release <HUY Osullivan - Last Filed: 09/22/22 19:27>
[2022-09-22 18:11] LABS: C Reactive Protein 0.34 mg/dL (< or = 0.50)
[2022-09-22 19:11] LABS: Erythrocyte Sedimentation Rate 5 MM/HR (0-20)
[2022-09-22 20:37] LABS: CSF Tube # 1
[2022-09-22 20:52] LABS: Glucose CSF 56 mg/dL; Total Protein CSF 15.7 mg/dL (15-45)
[2022-09-22 20:55] LABS: CSF Tube # 4; Color CSF COLORLESS; Red Blood Cell CSF 666 MM*3
[2022-09-22 21:14] LABS: White Blood Cell CSF 1 MM*3
[2022-09-22 21:17] LABS: Neutrophils CSF 59 %
[2022-09-22 21:18] LABS: Lymphocytes CSF 41 %
[2022-09-22] MEDS: HYDROmorphone HCl 2 MG TABLET 1 MG PO (21:55)
[2022-09-22] MEDS: Butalb/Acetamin/Caff 50/325/40 TABLET 1 TAB PO (21:56)
[2022-09-22] MEDS: ondansetron HCL 4 MG/2 ML VIAL IVPUSH (21:57)
[2022-09-22 22:26] LABS: Cryptococcus neoformans/gattii Not Detected (Not Detect.); Enterovirus Not Detected (Not Detect.); Escherichia coli K1 Not Detected (Not Detect.); Haemophilus influenzae Not Detected (Not Detect.); Herpes simplex virus 1 Not Detected (Not Detect.); Herpes simplex virus 2 Not Detected (Not Detect.); Human herpesvirus 6 Not Detected (Not Detect.); Human parechovirus Not Detected (Not Detect.); Listeria monocytogenes Not Detected (Not Detect.); Neisseria meningitidis Not Detected (Not Detect.); Streptococcus agalactiae Not Detected (Not Detect.); Streptococcus pneumoniae Not Detected (Not Detect.); Varicella zoster virus Not Detected (Not Detect.)
[2022-09-22 23:32] LABS: Appearance CSF CLEAR
[2022-09-22 23:34] LABS: CSF Appearance Clear, Colorless
[2022-09-27 14:37] LABS: ANA Titer 2 1:40 titer; Anti Nuclear Antibody Screen POSITIVE (NEGATIVE); Anti Nuclear Antibody Titer 1:40 titer
[2022-09-30 20:42] LABS: Lyme IgG CSF Immunoblot NO BANDS DETECTED; Lyme IgM CSF Immunoblot NO BANDS DETECTED
== END 2022-09-22 23:02 | disposition home or self-care (01) ==
PROVIDERS: Emergency Medicine; Physician Assistant; Emergency Provider Internal Medicine
DX: R51.9 Headache, unspecified (principal); H47.10 Unspecified papilledema; F17.210 Nicotine dependence, cigarettes, uncomplicated; F12.90 Cannabis use, unspecified, uncomplicated
CPT/HCPCS: 36415; 62270; 70450; 80048; 82945; 84157; 85025; 85652; 86038; 86039; 86140; 86617; 87015; 87070; 87205; 87483; 89051; 96374; 96375; 96376; 99283; 99285; J2405

== ENCOUNTER 2022-10-30 15:55 | Outpatient (REF) | payer OTHER, SELFPAY | END 2022-10-30 15:56 | disposition home or self-care (01) | LOC: HO.MRI 15:55 | PROVIDERS: Visit Provider Internal Medicine Gastroenterology | DX: H53.40 Unspecified visual field defects (principal); R51.9 Headache, unspecified | CPT/HCPCS: 70553; A9585 ==

== ENCOUNTER → 2023-04-02 11:43 | Outpatient (BNVA) | payer OTHER, SELFPAY | PROVIDERS: Visit Provider Internal Medicine Gastroenterology | DX: D64.9 Anemia, unspecified (principal); K62.5 Hemorrhage of anus and rectum; K52.9 Noninfective gastroenteritis and colitis, unspecified | CPT/HCPCS: 99212 ==

== ENCOUNTER 2023-10-01 11:37 | Outpatient (AMB) | payer OTHER, SELFPAY ==
--- NOTE | 2023-10-01 11:39 | A.OFFVIS_ITS ---
Intake Intake Visit Reasons: 6 month fu Intake Note: Patient 6 month telehealth follow up. Patient denies any GI issues for today, she stop all medication a week ago because she is trying to get . Machine Hostler Required: No Allergies latex [LATEX] Allergy (Intermediate, Verified 04/02/23 11:47) hives haloperidol [From HALDOL] Allergy (Unknown, Verified 04/02/23 11:47) ANXIETY quetiapine [From SEROQUEL] Allergy (Unknown, Verified 04/02/23 11:47) HIVES HPI 6 month fu HPI Details 32 yr old f being called for f/u RECAP: ? Saw her last year 02/2019 as in patient and before this at [facility] ? She had presented w worsening epigasrtric abdominal pain, nausea, vomiting and ileus with significant psych overlay from home issue. No evidence from imaging or labs of pancreatitis, other ddx; PUD, gastroparesis flare, PUD, enteritis/enteropathy, cannaboid use. ? she was supposed to get colonoscopy but never came back for that ? 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 she had presented to ED at [facility] 03/2020--jejunojejunal intussception, possibly transient and of unclear significance, she had mild leucocytosis at the time as well ? at follow up 04/2020 she still had anxiety and depression, due to social issues, children in custody of mother ? still c/o epigastric pain, can be severe ? has trouble swallowing, solids and liquids, going on for 2 yrs ? she does not have heavy periods did have iron def anemia last year ? linaclotide helps her constipation ? denies rectal bleeding or melena ? ? 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 IMAGING: ? CT 06/2020---kidneys were nrml, no stones, Capsule endoscopy--erosion x 1, gastritis MRe--normal GES--normal ? INTERIM: she denies any abdominal pain she is trying to get and stopped all her meds she has not had any negative effects no blood in stool no diarrhea appetite is good she has been to [place] for her eyes, and saw neuro opthalmologist --was told everything is ok EXAM: GENERAL: The patient is well developed and nontoxic. Assessment & Plan (1) Anemia: HGB stable from 09/2022 labs at 12 g/dl but no recent labs 2/ ileitis- on apriso, maybe due to mild crohns disease, told to see rheumatolgy or neuro-opthalmologist for papiloedema and pos , awaiting this ? Plan - 1/ will check labs, if inflammation then will recommend to go back on apriso ? [facility] Medical History Anxiety and depression Asthma History of kidney stones History of pneumonia Iron deficiency anemia PTSD (post-traumatic stress disorder) Surgical History History of cystoscopy History of tonsillectomy Hx of cholecystectomy Hx of endoscopy History of colonoscopy Family History Father Hx of heat stroke Mother No problems noted. Maternal Grandfather Cancer Paternal Grandfather Cancer Paternal Uncle Cancer Maternal Uncle Cancer Social History Household Members: Children Alcohol intake: current Alcohol intake frequency: does not drink Cigarettes Per Day: 2 Substance Use Type: Marijuana Assessment & Plan Assessment & Plan (1) Anemia: Code(s): D64.9 - Anemia, unspecified Qualifiers: Anemia type: iron deficiency Iron deficiency anemia type: chronic blood loss Qualified Code(s): D50.0 - Iron deficiency anemia secondary to blood loss (chronic) (2) Ileitis: Code(s): K52.9 - Noninfective gastroenteritis and colitis, unspecified (3) Early satiety: Code(s): R68.81 - Early satiety Orders: Orders Lactoferrin, Fecal, Quant. Today D64.9 - Anemia, unspecified, K51.50 - Left sided colitis without complications, K52.9 - Noninfective gastroenteritis and c olitis, unspecified, R68.81 - Early satiety Complete Blood Count Auto Diff Today D64.9 - Anemia, unspecified, K52.9 - Noninfective gastroenteritis and colitis, unspecified, R68.81 - Early satiety C Reactive Protein Today D64.9 - Anemia, unspecified, K52.9 - Noninfective gastroenteritis and colitis, unspecified, R68.81 - Early satiety Comprehensive Met. Panel Today D64.9 - Anemia, unspecified, K52.9 - Noninfective gastroenteritis and colitis, unspecified, K75.81 - Nonalcoholic steatohepatitis (BUTLER), R68.81 - Early satiety Ferritin Today D64.9 - Anemia, unspecified, K52.9 - Noninfective gastroenteritis and colitis, unspecified, R68.81 - Early satiety Vitamin B12 and Folate Today D64.9 - Anemia, unspecified, K52.9 - Noninfective gastroenteritis and colitis, unspecified, R68.81 - Early satiety Telehealth Telehealth Location of provider rendering services: practice address Location of patient: address on file Patient Identification confirmed using: Name, : Yes Telehealth method: video Patient verbally consented to treatment: Yes Patient verbally consented to billing insurance company: Yes Patient informed of any privacy concerns related to visit: Yes Minutes spent on Phone/Video with Pt.: 9 Coding Level of Care Code Tele Est Pt Level 3 (60353) Diagnoses Iron deficiency anemia due to chronic blood loss D50.0 Anemia type: iron deficiency Iron deficiency anemia type: chronic blood loss Ileitis K52.9 Early satiety R68.81
== END 2023-10-01 12:51 | disposition home or self-care (01) ==
LOC: HO.HGI 11:37
PROVIDERS: Visit Provider Internal Medicine Gastroenterology
DX: D50.0 Iron deficiency anemia secondary to blood loss (chronic) (principal); K52.9 Noninfective gastroenteritis and colitis, unspecified; R68.81 Early satiety
CPT/HCPCS: 99213

== ENCOUNTER → 2023-10-01 11:37 | Outpatient (BNVA) | payer OTHER, SELFPAY | PROVIDERS: Visit Provider Internal Medicine Gastroenterology ==

== ENCOUNTER 2024-03-27 14:24 | Outpatient (AMB) | payer OTHER, SELFPAY ==
--- NOTE | 2024-03-27 14:25 | MHC.OFFVIS ---
Intake Visit Reasons: 6 month follow up Intake Note: Irma presents as a telehealth today. CC: She states that she has been feeling weird the past couple days and concerned that she may possibly be so stopped taking her medications. She is actively trying to get at the time and lately she does not have any GI concerns. Allergies latex [LATEX] Allergy (Intermediate, Verified 03/27/24 14:25) hives haloperidol [From HALDOL] Allergy (Unknown, Verified 03/27/24 14:25) ANXIETY quetiapine [From SEROQUEL] Allergy (Unknown, Verified 03/27/24 14:25) HIVES HPI HPI 6 month follow up: Details: 32 yr old f being called for f/u RECAP: Saw her last year 02/2019 as in patient and before this at [facility] She had presented w worsening epigasrtric abdominal pain, nausea, vomiting and ileus with significant psych overlay from home issue. No evidence from imaging or labs of pancreatitis, other ddx; PUD, gastroparesis flare, PUD, enteritis/enteropathy, cannaboid use. 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 she had presented to ED at [facility] 03/2020--jejunojejunal intussception, possibly transient and of unclear significance, she had mild leucocytosis at the time as well at follow up 04/2020 she still had anxiety and depression, due to social issues, children in custody of mother still c/o epigastric pain, can be severe has trouble swallowing, solids and liquids, going on for 2 yrs she does not have heavy periods did have iron def anemia last year linaclotide helps her constipation denies rectal bleeding or melena given trial of apriso she has been on apriso since 11/2020 she had repeat colonoscopy 2020-- bx with regenerative changes in TI, one tiny erosion seen--small inflammed hemorrhoids she was waiting to see rheumatology, 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, eyesight had been bad she had issues with timing of depakote with the mesalamine, she was talking to her psych about it , and was keen on reducing the dose of depakote she was also trying to get her son back from care waiting to see neuro opthalmologist, vision is ongoing issue I ordered an MRI and it was normal LABS:none recent IMAGING: CT 06/2020---kidneys were nrml, no stones, Capsule endoscopy--erosion x 1, gastritis MRe--normal GES--normal INTERIM: No Gi sx still trying to get no blood in stool no diarrhea appetite is good takes linalcotide prn --bowels are good EXAM: GENERAL: The patient is well developed and nontoxic. Assessment & Plan (1) Anemia: HGB stable from 09/2022 labs at 12 g/dl but no recent labs 2/ ileitis- on apriso in the past, maybe due to mild crohns disease Plan - 1/ will check labs, and get baseline incl fecal lactoferrin PFSH Medical History Anxiety and depression Asthma History of kidney stones History of pneumonia Iron deficiency anemia PTSD (post-traumatic stress disorder) Surgical History History of cystoscopy History of tonsillectomy Hx of cholecystectomy Hx of endoscopy History of colonoscopy Family History Father Hx of heat stroke Mother No problems noted. Maternal Grandfather Cancer Paternal Grandfather Cancer Paternal Uncle Cancer Maternal Uncle Cancer Social History Household Members: Children Alcohol intake: current Alcohol intake frequency: does not drink Cigarettes Per Day: 2 Substance Use Type: Marijuana Telehealth Telehealth [facility]health [facility] Location of provider rendering services: practice address Location of patient: address on file Patient Identification confirmed using: Name, : Yes Telehealth method: video Patient verbally consented to treatment: Yes Patient verbally consented to billing insurance company: Yes Patient informed of any privacy concerns related to visit: Yes Minutes spent on Phone/Video with Pt.: 6 Assessment & Plan Assessment & Plan (1) Ileitis: Code(s): K52.9 - Noninfective gastroenteritis and colitis, unspecified Category: Medical Plan: see abive Coding Level of Care Code Tele Est Pt Level 3 (78387) Diagnoses Ileitis K52.9
== END 2024-03-27 15:14 | disposition home or self-care (01) ==
LOC: HO.HGI 14:24
PROVIDERS: Visit Provider Internal Medicine Gastroenterology
DX: K52.9 Noninfective gastroenteritis and colitis, unspecified (principal)
CPT/HCPCS: 99213

== ENCOUNTER → 2024-03-27 14:24 | Outpatient (BNVA) | payer OTHER, SELFPAY | PROVIDERS: Visit Provider Internal Medicine Gastroenterology ==

== ENCOUNTER 2024-03-29 14:00 | Outpatient (REF) | payer OTHER, SELFPAY ==
[2024-03-29 14:33] LABS: MANUAL DIFF FLAG NO
[2024-03-29 14:41] LABS: Basophils Percent Auto 0.3 % (0-2); Eosinophils Absolute Auto 0.1 X10*3/uL (0.0-0.4); Hematocrit 36.2 % (37.0-47.0); Hemoglobin 11.9 g/dl (12.0-16.0); Imm Gran Abs Auto 0.18 X10*3/uL (0.00-0.03); Imm Gran Pct Auto 1.5 % (0.0-0.4); Lymphocytes Absolute Auto 3.6 X10*3/uL (1.2-4.9); Lymphocytes Percent Auto 29.3 % (20-40); Mean Corpuscular HGB Conc 32.9 g/dl (31.0-35.0); Mean Corpuscular Volume 85.2 fL (80.0-98.0); Mean Platelet Volume 9.2 fL (9.4-12.3); Monocytes Absolute Auto 0.7 X10*3/uL (0.1-1.2); Monocytes Percent Auto 5.4 % (2-11); Neutrophils Absolute Auto 7.8 x10*3/uL (2.0-8.3); Neutrophils Percent Auto 62.5 % (45-73); Platelet Count 234 X10*3/uL (160-400); Red Blood Count 4.25 X10*6/uL (4.20-5.50); Red Cell Distribution Width 13.4 % (11.0-16.0); White Blood Count 12.4 X10*3/uL (4.8-10.8)
[2024-03-29 14:48] LABS: UPreg QC Valid YES; Urine Pregnancy NEGATIVE (NEGATIVE)
[2024-03-29 15:17] LABS: Alanine Aminotransferase 12 U/L (0-31); Albumin Level 3.7 g/dL (3.5-5.0); Alkaline Phosphatase 74 U/L (39-117); Anion Gap 12 (12-20); Aspartate Amino Transferase 13 U/L (5-31); Bilirubin Total 0.2 mg/dL (0.0-1.0); Blood Urea Nitrogen 7 mg/dL (9-16); C Reactive Protein < 0.04 mg/dL (< or = 0.50); Calcium 8.9 mg/dL (8.4-10.2); Carbon Dioxide 22 mmol/L (22-29); Chloride 108 mmol/L (96-108); Estimated Glomerular Filt Rate > 60; Glucose Random 102 mg/dL (60-115); Sodium 138 mmol/L (135-145); Total Protein 6.2 g/dL (6.5-8.0)
[2024-03-29 15:42] LABS: Ferritin 48 ng/mL (10-122)
[2024-03-29 15:43] LABS: Folate 4.2 ng/mL (> or = 4.0); Vitamin B12 568 pg/mL (200-900)
[2024-04-05 21:04] LABS: Lactoferrin, Fecal, Quant. <6.25 mcg/mL (<7.25)
== END 2024-03-29 14:01 | disposition home or self-care (01) ==
LOC: HO.LAB 14:00
PROVIDERS: PCP Family Medicine; Visit Provider Internal Medicine Gastroenterology
DX: D64.9 Anemia, unspecified (principal); K52.9 Noninfective gastroenteritis and colitis, unspecified; R68.81 Early satiety; K75.81 Nonalcoholic steatohepatitis (NASH); K51.50 Left sided colitis without complications; Z32.01 Encounter for pregnancy test, result positive
CPT/HCPCS: 36415; 80053; 81025; 82607; 82728; 82746; 83631; 85025; 86140

== ENCOUNTER 2024-12-17 00:48 | Emergency (ER) | payer OTHER, SELFPAY ==
[2024-12-17 01:02] VITALS: BP 126/86; BP 130/82; PULSE 103; PULSE 78; RESP 18; TEMP 36.9; O2SAT 98; O2SAT 99; BMI 33.6
[2024-12-17 01:27] LABS: MANUAL DIFF FLAG NO
--- OUTSIDE RECORDS SUMMARY | 2024-12-17 01:29 | XMS_ITS | Encounter Summary ---
Author Organization [facility] Address [address] [place] [id number] Care Team Providers Care Lead Presser Name Role Phone Vidhi Currie MD Primary Care Provider [phone] Encounter Details Date Type Department Care Team ([facility] st Contact Info) Description 11/20/2024 Telephone Internal Medicine - [place] [address] [id number] Vidhi Currie MD [address] [address] Social History Tobacco Use Types Packs/Day Years Used Date Smoking Tobacco: Every Day Smokeless Tobacco: Never Alcohol Use Standard Drinks/Week Comments No 0 (1 standard drink = 0.6 oz pur e alcohol) Sex and Gender Information Value Date Recorded Sex Assigned at Not on file Gender Identity Not on file Sexual Orientation Not on file Job Start Date Occupation Industry Not on file Not on file Not on file documented as of this encounter Plan of Treatment Not on file documented as of this encounter Visit Diagnoses Not on filedocumented in this encounter Care Teams Lead Presser Relationship Specialty Start Date End Date Vidhi Currie MD [address] [id number] PCP - General 01/12/24 documented as of this encounter
--- OUTSIDE RECORDS SUMMARY | 2024-12-17 01:29 | XMS_ITS | Clinical Summary ---
Author Organization [facility] Address [address] [place] [address] Care Team Providers Care Treasury Analyst Name Role Phone Unavailable Primary Care Provider Unavailabl e Social History Tobacco Use Types Packs/Day Years Used Date Smoking Tobacco: Never Assessed Sex and Gender Information Value Date Recorded Sex Assigned at Female 06/02/2024 12:29 PM EDT Gender Identity Not on file Sexual Orientation Not on file Job Start Date Occupation Industry Not on file Not on file Not on file Plan of Treatment Health Maintenance Due Date Last Done Comments Hepatitis B Vaccines (1 of 3 - 3-dose series) 1992 Hepatitis C Screening 1992 COVID-19 Vaccine (#1) 06/28/1993 Depression Screening 2004 Preventative Health Evaluation 2010 DTap / Tdap / Td (1 - Tdap) 2011 Cervical Cancer Screening (P ap Smear) 2013 Influenza Vaccine (#1) 2024 Pneumococcal Vaccine Aged Out No long er eligible based on patient's age to complete this topic RSV Ped < 20 months Aged Out No longe r eligible based on patient's age to complete this topic
--- OUTSIDE RECORDS SUMMARY | 2024-12-17 01:29 | XMS_ITS | Encounter Summary ---
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 Assessment: Self-Harm: None Suicidal Behavior: Past and Passive Homicidal Behavior: None Physical Assault: None Physical Aggression: None Property Damage: None Verbal Aggression: None Family history of suicide: None reported. Protective Factors: Current outpatient providers via [facility] (psychiatry and therapy). Denies suicidal or homicidal ideation. Patient denies auditory or visual hallucinations. Patient denies any history of suicide attempts, gestures, or self harming behaviors. Patient reported her children and her supportive mother and . Risk Factors: Patient has made past passive suicidal comments such as I'd rather be than here during one of her inpatient psychiatric admits. Suicidal statements often in the context of anxiety. Suicide Risk: Based on patient's history and current presentation, their level of risk for intentional lethal harm is considered Low Interventions: Motivational interviewing Mental Status Exam Risk Assessment Active listening Empathic Listening Emotional support Response to interventions: Patient was engaged and forthcoming during the crisis interview. Patient remained calm and cooperative. DSM-5TR Diagnosis: F41.1 Generalized Anxiety Disorder, Plan: Based on the above information, it is my clinical opinion that Irma does not meet the criteria for a higher level of care at this time and he would benefit from following up with her [facility] providers. Patient is currently psychiatrically cleared from [facility]. Disposition is supported by the [facility] feed house supervisor. Recommendations were discussed with requesting provider. It was a pleasure to assist Irma Rainey here at [facility]. This report is written and finalized by: Rod Arciniega Jr., PsyD, [place] Specialist II [facility] (Tel): [phone] / : [phone] documented in this encounter Plan of Treatment Not on file documented as of this encounter Procedures Procedure Name Priority Date/Time Associated Diagnosis Comments HCG, QUANTITATIVE STAT 12/16/2024 7:3 8 PM EST ETHANOL STAT 12/16/2024 7:38 PM EST ACETAMINOPHEN LEVEL STAT 12/16/2024 7 :38 PM EST SALICYLATE LEVEL STAT 12/16/2024 7:38 PM EST VALPROIC ACID LEVEL, TOTAL STAT 12/16/2024 7:38 PM EST COMPREHENSIVE METABOLIC PANEL STAT 12/16/2024 7:38 PM EST URINALYSIS WITH REFLEX MICROSCOPIC AND CULTURE STAT 12/16/2024 6:31 PM EST BRAR URINE CULTURE TUBE STAT 12/16/2024 6:31 PM EST DRUG ABUSE SCREEN 8A PANEL, URINE STAT 12/16/2024 6:31 PM EST BUPRENORPHINE SCREEN, URINE STAT 12/16/2024 6:31 PM EST METHADONE SCREEN, URINE STAT 12/16/2024 6:31 PM EST PHENCYCLIDINE, URINE STAT 12/16/2024 6:31 PM EST URINALYSIS WITH REFLEX MICROSCOPIC AND CULTURE STAT 12/16/2024 6:31 PM EST CBC WITH AUTO DIFFERENTIAL STAT 12/16/2024 4:55 PM EST CBC AND DIFFERENTIAL STAT 12/16/2024 4:55 PM EST POC , URINE DIAGNOSTIC STAT 12/16/2024 3:38 PM EST documented in this encounter Results * (ABNORMAL) Salicylate level (12/16/2024 7:38 PM EST) Salicylate Level <1.7(L) 2.0 - 29.0 mg/dL LAB CHEMISTRY METHOD 12/16/2024 8:11 PM EST [facility] Blood Venous blood specimen / Unknown Venipuncture / Unknown 12/16/2024 7:38 PM EST 12/16/2024 7:43 PM EST Miranda SON LAB BLOOD ORDERABLE S Performing Organization Address City/[facility]/ZIP Co de Phone Number [facility] [address] [place] [address], [place] [phone] * (ABNORMAL) Acetaminophen level (12/16/2024 7:38 PM EST) Acetaminophen Level <2.0(L) 10.0 - 30.0 mcg/mL LAB CHEMISTRY METHOD 12/16/2024 8:11 PM EST [facility] Blood Venous blood specimen / Unknown Venipuncture / Unknown 12/16/2024 7:38 PM EST 12/16/2024 7:43 PM EST Miranda SON LAB BLOOD ORDERABLE S Performing Organization Address [facility]/ZIP Co de Phone Number [facility] [address] [place] [address], [place] [phone] * Ethanol (12/16/2024 7:38 PM EST) Ethanol Level <3 0 - 10 mg/dL LAB CHEMISTRY METHOD 12/16/2024 8:11 PM EST [facility] Blood Venous blood specimen / Unknown Venipuncture / Unknown 12/16/2024 7:38 PM EST 12/16/2024 7:43 PM EST Miranda SON LAB BLOOD ORDERABLE S Performing Organization Address City/[facility]/ZIP Co de Phone Number [facility] [address] [place] [address], [place] [phone] * (ABNORMAL) Comprehensive metabolic panel (12/16/2024 7:38 PM EST) Sodium 137 133 - 145 mmol/L LAB CHEMISTRY METHOD 12/16/2024 8:11 PM EST [facility] Potassium 3.5 3.5 - 5.5 mmol/L LAB CHEMISTRY METHOD 12/16/2024 8:11 PM [facility] Chloride 109 96 - 110 mmol/L LAB CHEMISTRY METHOD 12/16/2024 8:11 PM [facility] CO2 18(L) 21 - 32 mmol/L LAB CHEMISTRY METHOD 12/16/2024 8:11 PM [facility] Anion Gap 10 3 - 11 LAB CHEMISTRY METHOD 12/16/2024 8:11 PM [facility] Glucose 87 70 - 100 mg/dL LAB CHEMISTRY METHOD 12/16/2024 8:11 PM [facility] BUN 8 5 - 25 mg/dL LAB CHEMISTRY METHOD 12/16/2024 8:11 PM [facility] Creatinine 0.61 0.50 - 1.10 mg/dL LAB CHEMISTRY METHOD 12/16/2024 8:11 PM [facility] eGFR 123 >=60 mL/min/1. 73m2 LAB CHEMISTRY METHOD 12/16/2024 8:11 PM [facility] Comment:Calculation based on the??Chronic Kidney Disease Epidemiology Collaboration (CKD-EPI) equation refit??without adjustment for race. BUN/Creatinine Ratio 13.1 LAB CHEMISTRY METHOD 12/16/2024 8:11 PM [facility] Calcium 9.3 8.5 - 10.5 mg/dL LAB CHEMISTRY METHOD 12/16/2024 8:11 PM [facility] AST (SGOT) 9(L) 10 - 42 unit/L LAB CHEMISTRY METHOD 12/16/2024 8:11 PM [facility] ALT (SGPT) 16 10 - 60 unit/L LAB CHEMISTRY METHOD 12/16/2024 8:11 PM [facility] Alkaline Phosphatase 65 42 - 121 unit/L LAB CHEMISTRY METHOD 12/16/2024 8:11 PM [facility] Total Protein 6.7 6.0 - 8.0 g/dL LAB CHEMISTRY METHOD 12/16/2024 8:11 PM EST [facility] Albumin 3.6 3.2 - 5.0 g/dL LAB CHEMISTRY METHOD 12/16/2024 8:11 PM EST [facility] Total Bilirubin 0.4 0.0 - 1.4 mg/dL LAB CHEMISTRY METHOD 12/16/2024 8:11 PM EST [facility] Blood Venous blood specimen / Unknown Venipuncture / Unknown 12/16/2024 7:38 PM EST 12/16/2024 7:43 PM EST Miranda SON LAB BLOOD ORDERABLE S Performing Organization Address [facility]/ZIP Co de Phone Number [facility] [address] [place] [address], [place] [phone] * (ABNORMAL) Valproic acid level, total (12/16/2024 7:38 PM EST) Valproic Acid, Total 10(L) 50 - 100 mcg/mL LAB CHEMISTRY METHOD 12/16/2024 8:14 PM EST [facility] Blood Venous blood specimen / Unknown Venipuncture / Unknown 12/16/2024 7:38 PM EST 12/16/2024 7:43 PM EST Miranda SON LAB BLOOD ORDERABLE S [facility] [address] [place] [address], [place] [phone] * HCG, quantitative (12/16/2024 7:38 PM EST) hCG Quant 116,362 mIU/mL LAB CHEMISTRY METHOD 12/16/2024 8:43 PM EST [facility] Blood Venous blood specimen / Unknown Venipuncture / Unknown 12/16/2024 7:38 PM EST 12/16/2024 7:43 PM EST Narrative [facility] - 12/16/2024 8:43 PM EST Quantitative HCG Reference Ranges Time after Conception ? MIU/ML 0.2-1 Week ? 5-50 1-2 ?? Weeks ? 50-500 2-3 ?? Weeks ?100-5,000 3-4 ?? Weeks ?500-10,000 4-5 ?? Weeks ?1,000-50,000 5-6 ?? Weeks ? 10,000-100,000 6-8 ?? Weeks ? 15,000-200,000 2-3 ?? Months ?10,000-100,000 2nd Trimester ?1,000-94,000 3rd Trimester ?2,500-90,000 Non- Females ?1-3 Jc Garzon MD LAB BLOOD ORDERABLES Performing Organization Address [facility]/State/ZIP Co de Phone Number [facility] [address] [place] [address], * Methadone, urine (12/16/2024 6:31 PM EST) [facility] Methadone Screen, Urine Negative Negative LAB CHEMISTRY METHOD 12/16/2024 7:15 PM EST [facility] Comment: Assay cutoff 300 ng/mL Semi-quantitative assay for screening purposes only. Unconfirmed screening result should not be used for non-medical purposes. *ALTERNATE METHOD CONFIRMATION DONE UPON REQUEST ONLY* Urine Urine specimen obtained by clean catch procedure / Unknown Non-blood Collection / Unknown 12/16/2024 6:31 PM EST 12/16/2024 6:47 PM EST Miranda SON LAB URINE ORDERABLE S Performing Organization Address [facility] de Phone Number [facility] [address] [place] [address], [place] [phone] * Phencyclidine, urine (12/16/2024 6:31 PM EST) PCP Scrn, Ur Negative Negative LAB CHEMISTRY METHOD 12/16/2024 7:15 PM EST [facility] Comment: Assay cutoff 25 ng/mL Semi-quantitative assay for screening purposes only. Unconfirmed screening result should not be used for non-medical purposes. *ALTERNATE METHOD CONFIRMATION DONE UPON REQUEST ONLY* Urine Urine specimen obtained by clean catch procedure / Unknown Non-blood Collection / Unknown 12/16/2024 6:31 PM EST 12/16/2024 6:47 PM EST Miranda SON LAB URINE ORDERABLE S Performing Organization Address [facility] de Phone Number [facility] [address] [place] [address], * Buprenorphine screen, urine (12/16/2024 6:31 PM EST) Buprenorphine Screen Urine Negative Negative LAB CHEMISTRY METHOD 12/16/2024 7:15 PM EST [facility] Urine Urine specimen obtained by clean catch procedure / Unknown Non-blood Collection / Unknown 12/16/2024 6:31 PM EST 12/16/2024 6:47 PM EST Narrative [facility] - 12/16/2024 7:15 PM EST Assay cutoff 5 ng/mL Semi-quantitative assay for screening purposes only. Unconfirmed screening result should not be used for non-medical purposes. *ALTERNATE METHOD CONFIRMATION DONE UPON REQUEST ONLY* Miranda SON LAB URINE ORDERABLE S [facility] [address] [place] [address], * (ABNORMAL) Drug abuse screen 8a panel, urine (12/16/2024 6:31 PM EST) [facility] Amphetamine Screen, Ur Negative Negative LAB CHEMISTRY METHOD 5 7:58 PM [facility] Comment:Certain OTC medicati ons containing ephedrine, phenylephrine, pseudoephedrine and phenylpropanolamine can cause false positive results. Barbiturate Screen, Ur Negative Negative LAB CHEMISTRY METHOD 5 7:58 PM [facility] Benzodiazepine Screen, Ur Negative Negative LAB CHEMISTRY METHOD 5 7:58 PM [facility] Cocaine Screen, Ur Negative Negative LAB CHEMISTRY METHOD 5 7:58 PM [facility] Opiate Screen, Ur Negative Negative LAB CHEMISTRY METHOD 5 7:58 PM [facility] Cannabinoid (THC) Screen, Ur Positive(A ) Negative LAB CHEMISTRY METHOD 5 7:58 PM [facility] Comment:Specimens from patie nts taking pantoprazole sodium (Protonix) have been shown to produce false positive results. Oxycodone Screen, Ur Negative Negative LAB CHEMISTRY METHOD 5 7:58 PM [facility] Fentanyl, Ur Negative Negative LAB CHEMISTRY METHOD 5 7:58 PM [facility] Urine Urine specimen obtained by clean catch procedure / Unknown Non-blood Collection / Unknown 12/16/2024 6:31 PM EST 12/16/2024 6:47 PM EST Narrative [facility] - 12/16/2024 7:58 PM EST Assay cutoffs: Amphetamines ? 1000 ng/mL Barbiturates ?200 ng/mL Benzodiazepines ?? 200 ng/mL Cocaine ? 300 ng/mL Fentanyl ?1 ng/mL Opiates ? 300 ng/mL Oxycodone ? 100 ng/mL THC ?50 ng/mL Semi-quantitative assay for screening purposes only. Unconfirmed screening result should not be used for non-medical purposes. *ALTERNATE METHOD CONFIRMATION DONE UPON REQUEST ONLY* Miranda SON LAB URINE ORDERABLE S Performing Organization Address [facility] de Phone Number [facility] [address] [place] [address], * Brar urine culture tube (12/16/2024 6:31 PM EST) Extra Tube Hold for add-ons. 12/16/2024 8:01 PM EST [facility] Comment:Auto resulted. Urine Urine specimen obtained by clean catch procedure / Unknown Non-blood Collection / Unknown 12/16/2024 6:31 PM EST 12/16/2024 6:47 PM EST Miranda SON LAB URINE ORDERABLE S Performing Organization Address [facility] Co de Phone Number [facility] [address] [place] [address], [place] [phone] * (ABNORMAL) Urinalysis with reflex microscopic and culture (12/16/2024 6:31 PM EST) Specific [place] Urine 1.014 1.003 - 1.030 LAB URINALYSIS - AUTOMATED METHOD 12/16/2024 6:54 PM EST [facility] pH, Urine 8.0 5.0 - 8.0 pH LAB URINALYSIS - AUTOMATED METHOD 12/16/2024 6:54 PM [facility] Leukocytes, Urine Negative Negative LAB URINALYSIS - AUTOMATED METHOD 12/16/2024 6:54 PM [facility] Nitrite, Urine Negative Negative LAB URINALYSIS - AUTOMATED METHOD 12/16/2024 6:54 PM [facility] Protein, Urine Trace <=Trace mg/dL LAB URINALYSIS - AUTOMATED METHOD 12/16/2024 6:54 PM [facility] Glucose, Urine Negative Negative mg/dL LAB URINALYSIS - AUTOMATED METHOD 12/16/2024 6:54 PM [facility] Ketones, Urine >=80(A) Negative mg/dL LAB URINALYSIS - AUTOMATED METHOD 12/16/2024 6:54 PM [facility] Urobilinogen, Urine 0.2 0.2 - 1.0 mg/dL LAB URINALYSIS - AUTOMATED METHOD 12/16/2024 6:54 PM [facility] Bilirubin, Urine Negative Negative LAB URINALYSIS - AUTOMATED METHOD 12/16/2024 6:54 PM [facility] Blood, Urine Negative Negative LAB URINALYSIS - AUTOMATED METHOD 12/16/2024 6:54 PM [facility] Urine Urine specimen obtained by clean catch procedure / Unknown Non-blood Collection / Unknown 12/16/2024 6:31 PM EST 12/16/2024 6:47 PM EST Miranda SON LAB URINE ORDERABLE S [facility] [address] [place] [address], * (ABNORMAL) CBC auto differential (12/16/2024 4:55 PM EST) WBC 14.5(H) 4.8 - 10.8 K/[facility] LAB HEMETOLOGY METHOD 12/16/2024 5:38 PM [facility] RBC 5.00(H) 3.80 - 4.80 M/mcL LAB HEMETOLOGY METHOD 12/16/2024 5:38 PM [facility] Hemoglobin 13.2 11.5 - 16.0 g/dL LAB HEMETOLOGY METHOD 12/16/2024 5:38 PM [facility] Hematocrit 38.7 35.0 - 47.0 % LAB HEMETOLOGY METHOD 12/16/2024 5:38 PM [facility] MCV 78.0(L) 79.0 - 98.0 FL LAB HEMETOLOGY METHOD 12/16/2024 5:38 PM [facility] MCH 26.6(L) 27.0 - 32.0 pcg LAB HEMETOLOGY METHOD 12/16/2024 5:38 PM [facility] MCHC 34.1 32.0 - 37.0 g/dL LAB HEMETOLOGY METHOD 12/16/2024 5:38 PM [facility] RDW 12.7 11.0 - 15.0 % LAB HEMETOLOGY METHOD 12/16/2024 5:38 PM [facility] Platelets 329 130 - 400 K/mcL LAB HEMETOLOGY METHOD 12/16/2024 5:38 PM [facility] MPV 9.4 7.0 - 11.0 FL LAB HEMETOLOGY METHOD 12/16/2024 5:38 PM [facility] NRBC 0.0 <1.0 % LAB HEMETOLOGY METHOD 12/16/2024 5:38 PM [facility] NRBC Absolute 0.00 <0.10 K/mcL LAB HEMETOLOGY METHOD 12/16/2024 5:38 PM [facility] Neutrophils Relative 72.5 % LAB HEMETOLOGY METHOD 12/16/2024 5:38 PM [facility] Lymphocytes Relative 21.6 % LAB HEMETOLOGY METHOD 12/16/2024 5:38 PM [facility] Monocytes Relative 4.6 % LAB HEMETOLOGY METHOD 12/16/2024 5:38 PM [facility] Eosinophils Relative 0.2 % LAB HEMETOLOGY METHOD 12/16/2024 5:38 PM [facility] Basophils Relative 0.5 % LAB HEMETOLOGY METHOD 12/16/2024 5:38 PM [facility] Immature Granulocytes Relative 0.6 % LAB HEMETOLOGY METHOD 12/16/2024 5:38 PM [facility] Neutrophils Absolute 10.50(H) 1.50 - 7.00 K/mcL LAB HEMETOLOGY METHOD 12/16/2024 5:38 PM [facility] Lymphocytes Absolute 3.13 1.00 - 5.00 K/mcL LAB HEMETOLOGY METHOD 12/16/2024 5:38 PM [facility] Monocytes Absolute 0.67 0.20 - 1.00 K/mcL LAB HEMETOLOGY METHOD 12/16/2024 5:38 PM [facility] Eosinophils Absolute 0.03 0.00 - 0.50 K/mcL LAB HEMETOLOGY METHOD 12/16/2024 5:38 PM [facility] Basophils Absolute 0.07 0.00 - 0.20 K/mcL LAB HEMETOLOGY METHOD 12/16/2024 5:38 PM [facility] Immature Granulocytes Absolute 0.09(H) 0.00 - 0.03 K/mcL LAB HEMETOLOGY METHOD 12/16/2024 5:38 PM [facility] Blood Venous blood specimen / Unknown Venipuncture / Unknown 12/16/2024 4:55 PM EST 12/16/2024 5:17 PM EST Jc Garzon MD LAB BLOOD ORDERABLES [facility] [address] [place] [address], * (ABNORMAL) POC , urine manually resulted (12/16/2024 3:38 PM EST) HCG, Ur POC Positive(A ) Negative POC hCG Int QC Pass? Yes Yes Urine Urine specimen obtained by clean catch procedure / Unknown 12/16/2024 3:38 PM EST Jc Garzon MD POINT OF CARE TEST E NTER/EDIT ORDERABLES documented in this encounter Visit Diagnoses Diagnosis Anxiety- Primary Anxiety state, unspecified Elevated serum hCG Nausea and vomiting, unspecified vomiting type documented in this encounter Administered Medications Inactive Administered Medications - up to 3 most recent administrations Medication Order MAR Action Action Date Dose Rate Site diphenhydrAMINE (BENADRYL) injection 25 mg 25 mg, intravenous, Once, On 12/16/24 at 1639, For 1 dose Given 12/16/2024 4:57 PM EST 25 mg LORazepam (ATIVAN) injection 1 mg 1 mg, intramuscular, Once, On 12/16/24 at 1717, For 1 dose, Prior to IV use, lorazepam injection should be DILUTED with an equal volume of compatible solution; Rate of administration should NOT exceed 2 mg/min. Given 12/16/2024 5:51 PM EST 1 mg Left Deltoid ondansetron (PF) (ZOFRAN) injection 4 mg 4 mg, intravenous, Once, On 12/16/24 at 1639, For 1 dose Given 12/16/2024 4:57 PM EST 4 mg sodium chloride 0.9 % bolus 1,000 mL 1,000 mL, intravenous, at 4,000 mL/hr, Administer over 0.25 Hours, Once, On 12/16/24 at 1639, For 1 dose New Bag 12/16/2024 4:57 PM EST 1,000 mL 4000 mL/hr documented in this encounter Active and Recently Administered Medications Times are shown in EST. Scheduled Medication Order 12/14/2024 12/15/2024 12/16/2024 diphenhydrAMINE (BENADRYL) injection 25 mg (COMPLETED) 25 mg, intravenous, Once, On 12/16/24 at 1639, For 1 dose 165 (Given - Provid er: Abby Spangler RN) LORazepam (ATIVAN) injection 1 mg (COMPLETED) 1 mg, intramuscular, Once, On 12/16/24 at 1717, For 1 dose, Prior to IV use, lorazepam injection should be DILUTED with an equal volume of compatible solution; Rate of administration should NOT exceed 2 mg/min. 175 (Given - Provid er: Dominguez Stephens RN) ondansetron (PF) (ZOFRAN) injection 4 mg (COMPLETED) 4 mg, intravenous, Once, On 12/16/24 at 1639, For 1 dose 1656 (Given - Provid er: Abby Spangler RN) sodium chloride 0.9 % bolus 1,000 mL 1,000 mL, intravenous, at 4,000 mL/hr, Administer over 0.25 Hours, Once, On 12/16/24 at 1942, For 1 dose 194 (Canceled Entry - Provider: Automatic Discharge Provider - Comment: Automatically canceled at discontinue of medication order)215 (Stopped - Provider: Heriberto Arriaza RN) sodium chloride 0.9 % bolus 1,000 mL (COMPLETED) 1,000 mL, intravenous, at 4,000 mL/hr, Administer over 0.25 Hours, Once, On 12/16/24 at 1639, For 1 dose 1656 (New Bag - Prov ider: Abby Spangler RN)171 (Due: Stopped - Provider: Abby Spangler RN) documented in this encounter Orders Medications Ordered That Keshav ht Not Have Been Administered Count Last Ordered Date First Ordered Date sodium chloride 0.9 % bolus 1,000 mL 11/2024 Consult Count Last Ordered Date First Orde red Date IP CONSULT TO MOTEL FRONT DESK ATTENDANT 1 12/16/2024 documented in this encounter Care Teams Manager Of Planning Relationship Specialty Start Date End Date Vidhi Currie MD [address] [place] [address] PCP - General 01/12/24 documented as of this encounter
[2024-12-17 01:30] LABS: Basophils Absolute Auto 0.1 X10*3/uL (0.0-0.2); Basophils Percent Auto 0.4 % (0-2); Hematocrit 37.2 % (37.0-47.0); Hemoglobin 12.8 g/dl (12.0-16.0); Imm Gran Pct Auto 0.6 % (0.0-0.4); Lymphocytes Absolute Auto 2.9 X10*3/uL (1.2-4.9); Lymphocytes Percent Auto 17.3 % (20-40); Mean Corpuscular HGB Conc 34.4 g/dl (31.0-35.0); Mean Corpuscular Hemoglobin 27.6 pg (27.0-33.0); Mean Corpuscular Volume 80.2 fL (80.0-98.0); Mean Platelet Volume 9.3 fL (9.4-12.3); Monocytes Absolute Auto 0.9 X10*3/uL (0.1-1.2); Monocytes Percent Auto 5.2 % (2-11); Neutrophils Absolute Auto 12.8 x10*3/uL (2.0-8.3); Neutrophils Percent Auto 76.5 % (45-73); Platelet Count 201 X10*3/uL (160-400); Red Blood Count 4.64 X10*6/uL (4.20-5.50); Red Cell Distribution Width 12.9 % (11.0-16.0); White Blood Count 16.7 X10*3/uL (4.8-10.8)
[2024-12-17 01:48] LABS: Alanine Aminotransferase 7 U/L (0-31); Albumin Level 4.2 g/dL (3.5-5.0); Anion Gap 15 (12-20); Aspartate Amino Transferase 19 U/L (5-31); Bilirubin Total 0.4 mg/dL (0.0-1.0); Blood Urea Nitrogen 8 mg/dL (9-16); Calcium 9.5 mg/dL (8.4-10.2); Carbon Dioxide 16 mmol/L (22-29); Chloride 109 mmol/L (96-108); Estimated Glomerular Filt Rate > 60; Glucose Random 87 mg/dL (60-115); Lipase 12 U/L (8-78); Potassium 3.7 mmol/L (3.3-5.1); Sodium 136 mmol/L (135-145); Total Protein 7.8 g/dL (6.5-8.0)
--- NOTE | 2024-12-17 01:50 | PC.NURSE ---
Pt BIBA from [facility] in [place], a&ox4, respirations even and unlabored. pt reports she is trying to get into a crisis program for increased anxiety due to not being able to eat. Pt found out she was about 7 weeks. pt is reporting intermittent n/v, decreased po intake. Pt reports she was accepted into [facility] but she needs to be cleared medically. pt vss. ambulatory to bathroom with steady gait, urine sample obtained. pt denies si/hi. pt appears tearful.
[2024-12-17 01:59] LABS: Appearance Urine Clear; Color Urine Yellow; Glucose Urine UA Negative (Negative); Leukocyte Esterase Urine Negative (Negative); Nitrite Urine Negative (Negative); Specific Gravity - Urine 1.025 (1.005-1.025); Urine Blood Negative (Negative); Urine Ketones 80 mg/dL (Negative); Urine Protein Trace mg/dL (Neg-Trace)
[2024-12-17 02:25] LABS: Alkaline Phosphatase 65 U/L (39-117); HCG Quantitative 182620 mIU/mL
[2024-12-17 02:33] LABS: Amphetamine Screen Urine Not Detected (Not Detect); Barbiturates, Urine Not Detected (Not Detect); Benzodiazepines Screen Urine Not Detected (Not Detect); Buprenorphine Scr Not Detected (Not Detect); Cannabinoid Screen Urine POSITIVE (Not Detect); Cocaine Screen Urine Not Detected (Not Detect); Fentanyl, urine Not Detected (Not Detect); Methadone Screen, Urine Not Detected (Not Detect); Opiate Screen Urine Not Detected (Not Detect); Oxycodone Screen Urine Not Detected (Not Detect); Phencyclidine Screen Urine Not Detected (Not Detect)
--- NOTE | 2024-12-17 03:04 | PC.NURSE ---
pt noted to be upset about wait time, explained to pt that we did draw initial labs and a provider is working their way over to her. pt continuing to be upset, tank charger at bedside.
--- NOTE | 2024-12-17 03:48 | ED_ITS ---
HPI - General Adult General Chief complaint: General Medical Stated complaint: ABDOMINAL PAIN/7 WEEKS Time Seen by Provider: 12/17/24 03:48 Source: patient Mode of arrival: EMS Limitations: no limitations History of Present Illness ED Provider: Dr. Hill Samson HPI narrative: 33-year-old female , CHILO 08/05/2023 who presents emergency department for evaluation of nausea, vomiting, unable to eat or drink x1 week. Patient states that she has been having anxiety attacks which she believes his made it difficult for her to eat and drink. The patient states that during her previous to she had hyperemesis gravidarum which was treated with Zofran and Reglan. The patient did follow-up with OBGYN at [facility] and had an ultrasound done a proximally 1 week prior and was told that she has a single intrauterine and at that time she was 6 weeks . She states that yesterday she had an anxiety attack again and was at [facility]. She states that they did not give her any IV fluids and she believes that this is why she is not feeling any better. The patient states that she was in a [facility] program that starts tomorrow to help with her anxiety but she was told that she needs to get hydrated and medications prior to them accepting your into the program. Patient states that 1 week prior she did test positive for influenza but her symptoms have significantly improved. She denied fever but states she gets occasional chills. She denied rhinorrhea, sore throat. She states she was an occasional dry cough. She denied shortness of breath or dyspnea on exertion. She denied frequency, urgency or dysuria. She states that she was not had any vaginal discharge or vaginal bleeding. She states that she was getting pain in her lower back intermittently. Related Data Home Medications ?Medication ?Instructions ?Recorded ?Confirmed divalproex 500 mg tablet,delayed 500 mg PO BID 11/05/20 02/26/21 release clonazepam 0.5 mg tablet 0.5 mg PO BID PRN 10/19/22 clonidine HCl 0.1 mg tablet 0.1 mg PO TID 03/27/24 Previous Rx's ?Medication ?Instructions ?Recorded linaclotide 72 mcg capsule 72 mcg PO DAILY #30 caps 09/20/23 (Linzess) mesalamine 0.375 gram 1.5 g (4 x 0.375 gram) PO DAILY 06/01/24 capsule,extended release 24 hr #120 caps (Apriso) diphenhydramine HCl 25 mg capsule 25 mg PO Q6H PRN headache, 12/17/24 nausea, vomiting #20 caps metoclopramide HCl 10 mg tablet 10 mg PO Q6H PRN nausea and 12/17/24 (Reglan) vomiting #20 tabs Allergies Allergy/AdvReac Type Severity Reaction Status Date / Time latex [LATEX] Allergy Intermediate hives Verified 12/17/24 01:06 haloperidol [From HALDOL] Allergy Unknown ANXIETY Verified 12/17/24 01:06 quetiapine [From SEROQUEL] Allergy Unknown HIVES Verified 12/17/24 01:06 Review of Systems 2 Review of Systems: Yes all other systems are reviewed and are negative ON LICENSE OF [facility] Past Medical History ON LICENSE OF [facility] Narrative: Social history: She use to smoke cigars but stopped when she became . She denied alcohol use. She states she used to smoke marijuana but he was not smoke since she was become . Medical History Anxiety and depression Asthma History of kidney stones History of pneumonia Iron deficiency anemia PTSD (post-traumatic stress disorder) Surgical History History of cystoscopy History of tonsillectomy Hx of cholecystectomy Hx of endoscopy History of colonoscopy Family History Family History Father Hx of heat stroke Mother No problems noted. Maternal Grandfather Cancer Paternal Grandfather Cancer Paternal Uncle Cancer Maternal Uncle Cancer Social History Social History Household Members: Children Alcohol intake: current Alcohol intake frequency: does not drink Cigarettes Per Day: 2 Smoked in Last 30 Days: No Use of substances other than those prescribed or required for medical reasons: Yes Substance Use Type: Marijuana Advance Directives: No Do you have a plan to hurt others: No Plan Patient : Yes Physical Exam ED Vital Signs: Vital Signs - 24 hr 12/17/24 01:02 12/17/24 06:16 Temperature 98.4 F 98.3 F Pulse Rate 78 81 Respiratory Rate 18 18 Blood Pressure 130/82 113/72 Pulse Oximetry 99 96 Oxygen Delivery Method Room Air Room Air BMI result Body Mass Index 33.6 Vital signs were normal Exam: General: Awake, alert in no distress Head: Normocephalic, atraumatic EENT: PERRL, Lids normal, sclera normal, conjunctiva normal, nose normal , ears normal, throat without erythema or exudates Neck: Supple, no adenopathy Lung: breath sounds symmetric, no wheezing, rales or rhonchi Chest: symmetric movement, nontender Heart: regular rate and rhythm, normal S1, S2 no murmurs or rubs Abdomen: soft, non-tender, nondistended, normal bowel sounds Back: no vertebral tenderness, no CVAT Extremities: no deformities, moves all extremities symmetrically Neuro: Awake, alert, oriented, normal speech, cranial nerves intact, moves all extremities symmetrically Psych: Pleasant, cooperative Medications Administered Discontinued Medications Generic Name Dose Route Start Last Admin Trade Name Freq PRN Reason Stop Dose Admin Diphenhydramine HCl 25 mg 12/17/24 04:04 12/17/24 04:19 Diphenhydramine Hcl 50 Mg/Ml Vial IVPUSH 12/17/24 04:05 25 mg ONCE STA Administration Sodium Chloride 1,000 mls @ 999 mls/hr 12/17/24 04:04 12/17/24 05:20 Ns IV 12/17/24 05:04 Infused .Q1H1M STA Infusion Metoclopramide HCl 10 mg 12/17/24 04:04 12/17/24 04:16 Metoclopramide Hcl 10 Mg/2 Ml Vial IVPUSH 12/17/24 04:05 10 mg ONCE STA Administration Medical Decision Making Medical Decision Making [facility] Narrative: 33-year-old female , CHILO 08/05/2023 who presents emergency department for evaluation of nausea, vomiting, unable to eat or drink x1 week. Patient did have an ultrasound at 6 weeks and has an intrauterine . Patient denied abdominal pain, vaginal bleeding, vaginal discharge. Patient has been having anxiety attacks and has been accepted to a [facility] but she states she can not get into this program unless she gets IV fluid, medications to help with her nausea and vomiting and is able to eat and drink. Vital signs were normal. Physical examination was unremarkable. Differential diagnosis: ?Includes but is not limited to vomiting associated with , hyperemesis gravidarum, gastritis, GERD, pancreatitis, anemia, electrolyte abnormalities Course: 04:25 My independent interpretation patient's laboratory evaluation is as follows: Elevated WBC [id number] with . Normal H&H of 12.8 and 37.2. Elevated chloride 109, low bicarb 16-consistent with vomiting. LFTs were normal. Lipase was normal. Quantitative beta-hCG was appropriately elevated at 182,670. At this time I do not think that the patient was having a miscarriage based on her symptoms and examination and that she is experiencing nausea and vomiting associated with her . The patient was ordered to get normal saline IV x1 L, Reglan 10 mg IV and Benadryl 25 mg IV. 06:50 Patient felt significantly better after the above treatment. She was able to drink cranberry juice, apple juice and eat salty and crackers without any difficulty. The patient loss of appetite and nausea most likely related to her and I did discuss this with her. Patient was prescribed Reglan (metoclopramide) 10 mg pills, 1 pill every 6 hours as needed for nausea and vomiting and Benadryl 25 mg to take when she takes Reglan. The patient was medically cleared for [facility] admission for further management of her anxiety. Admission/Observation Consideration of admission/observation: Escalation of care including admission/observation considered (Yes) Lab Data MDM Lab Attestation statement: I reviewed the patient's lab results. 12/17/24 01:23 12/17/24 01:23 Labs: Lab Results 12/17/24 12/17/24 12/17/24 Range/Units 01:23 01:48 01:52 WBC 16.7 H (4.8-10.8) X10*3/uL RBC 4.64 (4.20-5.50) X10*6/uL Hgb 12.8 (12.0-16.0) g/dl Hct 37.2 (37.0-47.0) % MCV 80.2 (80.0-98.0) fL MCH 27.6 (27.0-33.0) pg MCHC 34.4 (31.0-35.0) g/dl RDW 12.9 (11.0-16.0) % Plt Count 201 (160-400) X10*3/uL MPV 9.3 L (9.4-12.3) fL Immature Gran % (Auto) 0.6 H (0.0-0.4) % Neut % (Auto) 76.5 H (45-73) % Lymph % (Auto) 17.3 L (20-40) % Richardson % (Auto) 5.2 (2-11) % Eos % (Auto) 0.0 (0-4) % Baso % (Auto) 0.4 (0-2) % Lymph # (Auto) 2.9 (1.2-4.9) X10*3/uL Richardson # (Auto) 0.9 (0.1-1.2) X10*3/uL Eos # (Auto) 0.0 (0.0-0.4) X10*3/uL Baso # (Auto) 0.1 (0.0-0.2) X10*3/uL Abs Immat Gran (auto) 0.10 H (0.00-0.03) X10*3/uL Absolute Neuts (auto) 12.8 H (2.0-8.3) x10*3/uL Absolute Nucleated RBC 0.000 (0.0-0.012) X10*3/uL Nucleated RBC % (auto) 0.0 (0.0-0.2) /100WBC Sodium 136 (135-145) mmol/L Potassium 3.7 (3.3-5.1) mmol/L Chloride 109 H (96-108) mmol/L Carbon Dioxide 16 L (22-29) mmol/L Anion Gap 15 (12-20) BUN 8 L (9-16) mg/dL Creatinine 0.62 (0.5-1.4) mg/dL Estim Creat Clear Calc 147.0 Estimated GFR > 60 Random Glucose 87 (60-115) mg/dL Calcium 9.5 D (8.4-10.2) mg/dL Total Bilirubin 0.4 (0.0-1.0) mg/dL AST 19 (5-31) U/L ALT 7 (0-31) U/L Alkaline Phosphatase 65 (39-117) U/L Total Protein 7.8 (6.5-8.0) g/dL Albumin 4.2 (3.5-5.0) g/dL Lipase 12 (8-78) U/L Beta HCG, Quant 864041 mIU/mL Urine Color Yellow Urine Appearance Clear Urine pH 6.0 (5.0-9.0) Ur Specific [place] 1.025 (1.005-1.025) Urine Protein Trace (Neg-Trace) mg/dL Urine Glucose (UA) Negative (Negative) mg/dL Urine Ketones 80 (Negative) mg/dL Urine Blood Negative (Negative) Urine Nitrite Negative (Negative) Ur Leukocyte Esterase Negative (Negative) Urine Opiates Screen Not Detected (Not Detect) Ur Buprenorphine Scrn Not Detected (Not Detect) ng/mL Ur Oxycodone Screen Not Detected (Not Detect) ng/mL Urine Methadone Screen Not Detected (Not Detect) ng/mL Urine Fentanyl Screen Not Detected (Not Detect) Ur Barbiturates Screen Not Detected (Not Detect) Ur Phencyclidine Scrn Not Detected (Not Detect) Ur Amphetamines Screen Not Detected (Not Detect) U Benzodiazepines Scrn Not Detected (Not Detect) Urine Cocaine Screen Not Detected (Not Detect) U Marijuana (THC) Screen POSITIVE H (Not Detect) Prescription Management I considered prescription management with: Other (Antiemetics) Chronic Conditions Patient?s care impacted by: Other (Anxiety and depression) Discharge Plan Discharge Clinical Impression: First trimester , Nausea and vomiting in , Loss of appetite, Anxiety Patient Disposition: Xfer Other Transfer Details: [facility] Instructions: Nausea and Vomiting in (ED) Additional Instructions: Your blood work was consistent with your . You were treated with normal saline IV, Reglan (metoclopramide) 10 mg and Benadryl 25 mg IV. After this treatment, you were able to drink juice and eat crackers which is reassuring. I believe that your loss of appetite is related to your nausea and both of these symptoms are caused by your . Take Reglan (metoclopramide) 10 mg pills, 1 pill every 6 hours as needed for nausea, vomiting and loss of appetite. When you take Reglan, take Benadryl (diphenhydramine) 25 mg. You can continue to take the vitamin B6 but do not take the Unisom since this is an antihistamine similar to Benadryl. Follow-up with your doctor in 2 days. Please return to the emergency department if your symptoms get worse or if you develop any symptoms that are concerning to you. You are medically cleared to go to the [facility] outpatient treatment program. Prescriptions: New diphenhydramine HCl 25 mg capsule 25 mg PO Q6H PRN (Reason: headache, nausea, vomiting) Qty: 20 0RF metoclopramide HCl [Reglan] 10 mg tablet 10 mg PO Q6H PRN (Reason: nausea and vomiting) Qty: 20 0RF No Action Linzess 72 mcg capsule 72 mcg PO DAILY Qty: 30 3RF mesalamine [Apriso] 0.375 gram capsule,extended release 24hr 1.5 g PO DAILY Qty: 120 2RF divalproex 500 mg tablet,delayed release (DR/EC) 500 mg PO BID clonazepam 0.5 mg tablet 0.5 mg PO BID PRN clonidine HCl 0.1 mg tablet 0.1 mg PO TID Interventions: ED Discharge Assessment Last Done: 12/17/24 08:12 Discharge Date/Time: 12/17/24 08:12 Print Language: Luxembourgish
[2024-12-17] MEDS: Metoclopramide HCl 10 MG/2 ML VIAL IVPUSH (04:16)
[2024-12-17] MEDS: 0.9 % Sodium Chloride 1,000 ML 999 ML IV (04:18)
[2024-12-17] MEDS: diphenhydrAMINE HCL 50 MG/ML VIAL 25 MG IVPUSH (04:19)
--- NOTE | 2024-12-17 04:45 | PC.NURSE ---
22G placed in right hand, pt medicated per jan, pt moved into ed room, lights dimmed, blankets given.
[2024-12-17 06:16] VITALS: BP 113/72; PULSE 81; RESP 18; TEMP 36.8; O2SAT 96
--- NOTE | 2024-12-17 08:11 | PC.NURSE ---
Pt. coordinated a ride to [facility] per her mother. Spoke with [facility]- they are expecting pt. for 10:00 today.
[2024-12-17 08:12] VITALS: BP 132/90; PULSE 84; RESP 18; TEMP 36.6; O2SAT 97
== END 2024-12-17 08:12 | disposition other institution (70) ==
PROVIDERS: Emergency Provider Emergency Medicine Emergency Medical Services
DX: O21.0 Mild hyperemesis gravidarum (principal); O99.341 Other mental disorders complicating pregnancy, first trimester; Z3A.01 Less than 8 weeks gestation of pregnancy; Z51.81 Encounter for therapeutic drug level monitoring; Z79.899 Other long term (current) drug therapy
CPT/HCPCS: 36415; 80053; 80307; 81003; 83690; 84702; 85025; 96361; 96374; 96375; 99284; J1200; J2765